=== PATIENT | female | born 1935 | race Caucasian/White ===

== ENCOUNTER 2016-11-25 11:15 | Emergency (ER) | payer MEDICARE ==
[2016-11-25 11:22] VITALS: RESP 18; TEMP 96.9
--- NOTE | 2016-11-25 11:27 | ED ---
General Adult HPI - General Chief complaint: Dizziness Stated complaint: Vertigo Time Seen by Provider: 11/25/16 11:25 Source: patient, EMS, RN notes reviewed, old records reviewed Mode of arrival: EMS Limitations: no limitations - History of Present Illness Initial comments: This is a 80-year-old female here for evaluation of dizziness lightheadedness and nausea. Patient states she woke up this morning eating and feeling well. She's been dealing with this and off for quite some time, has had a stress test cardiology evaluation echo of her heart with no foundries in. Patient states her appetite seems well, she does not feel dehydrated, but this is been having these episodes of weakness and dizziness. She has history of vertigo on Antivert with the room spinning around, states is completely different. No headache chest pain shortness of breath or abdominal pain. No recent significant medication changes - Related Data Home Medications Medication Instructions Recorded Confirmed Levothyroxine Sodium [Synthroid] 125 mcg PO DAILY 07/24/16 11/25/16 Multivitamins, Thera [Multivitamin] 1 tab PO DAILY 07/24/16 11/25/16 Vit A,C & E/Lutein/Minerals 1 tab PO DAILY 07/24/16 11/25/16 [Ocuvite with Lutein Tablet] Biotin 5 mg PO DAILY 11/25/16 11/25/16 Allergies Allergy/AdvReac Type Severity Reaction Status Date / Time aspirin Allergy Rash/Hives Verified 11/25/16 12:53 codeine Allergy Rash/Hives Verified 11/25/16 12:53 lincomycin HCl Allergy Anaphylaxis Verified 11/25/16 12:53 [From Lincocin] midazolam HCl [From Versed] Allergy Rapid Verified 11/25/16 12:53 Heart Rate naproxen [From Naprosyn] Allergy Anaphylaxis Verified 11/25/16 12:53 Penicillins Allergy Rash/Hives Verified 11/25/16 12:53 Sulfa (Sulfonamide Allergy Rash/Hives Verified 11/25/16 12:53 Antibiotics) Review of Systems ROS Statement: Those systems with pertinent positive or pertinent negative responses have been documented in the HPI. ROS Other: All systems not noted in ROS Statement are negative. Past Medical History Past Medical History: Thyroid Disorder Additional Past Medical History / Comment(s): back pain, dizziness History of Any Multi-Drug Resistant Organisms: C-DIFF Date of last positivie culture/infection: 2017 MDRO Source:: stool Past Surgical History: Appendectomy, Tubal Ligation Additional Past Surgical History / Comment(s): bilateral shoulder, cataracts Past Psychological History: Anxiety Smoking Status: Former smoker Past Alcohol Use History: None Reported Past Drug Use History: None Reported General Exam - General Exam Comments Initial Comments: NIH of 0 Limitations: no limitations General appearance: alert, in no apparent distress Head exam: Present: atraumatic, normocephalic, normal inspection Eye exam: Present: normal appearance, PERRL, EOMI. Absent: scleral icterus, conjunctival injection, periorbital swelling ENT exam: Present: normal exam, mucous membranes moist Neck exam: Present: normal inspection. Absent: tenderness, meningismus, lymphadenopathy Respiratory exam: Present: normal lung sounds bilaterally. Absent: respiratory distress, wheezes, rales, rhonchi, stridor Cardiovascular Exam: Present: regular rate, normal rhythm, normal heart sounds. Absent: systolic murmur, diastolic murmur, rubs, gallop, clicks GI/Abdominal exam: Present: soft, normal bowel sounds. Absent: distended, tenderness, guarding, rebound, rigid Extremities exam: Present: normal inspection, full ROM, normal capillary refill. Absent: tenderness, pedal edema, joint swelling, calf tenderness Back exam: Present: normal inspection Neurological exam: Present: alert, oriented X3, CN II-XII intact Psychiatric exam: Present: normal affect, normal mood Skin exam: Present: warm, dry, intact, normal color. Absent: rash Course Vital Signs 11/25/16 11/25/16 11:17 13:00 Temperature 96.9 F L Pulse Rate 56 L 50 L Respiratory 18 18 Rate Blood Pressure 158/72 140/67 O2 Sat by Pulse 97 99 Oximetry - Reevaluation(s) Reevaluation #1: 11/25/16 11:40 Patient is currently asymptomatic, no neurological deficit Reevaluation #2: 11/25/16 12:38 Patient remains asymptomatic EKG Findings - EKG Comments: EKG Findings:: EKG shows sinus bradycardia rate 55, ND 164, QRS 82, QTC 432 Medical Decision Making - Medical Decision Making 80 female here free patient dizziness anxiety. Vision has had recent full cardiac evaluation clinic stress test echo which were negative, lab work x-ray and CT brain are negative for acute disease here, physical exam is normal patient is a some tobacco can be discharged home - Lab Data Result diagrams: 11/25/16 11:29 11/25/16 11:29 Lab Results 11/25/16 11/25/16 11/25/16 Range/Units 11:29 11:29 11:29 WBC 5.5 (3.8-10.6) k/uL RBC 4.80 (3.80-5.40) m/uL Hgb 15.0 (11.4-16.0) gm/dL Hct 44.4 (34.0-46.0) % MCV 92.5 (80.0-100.0) fL MCH 31.3 (25.0-35.0) pg MCHC 33.9 (31.0-37.0) g/dL RDW 12.8 (11.5-15.5) % Plt Count 207 (150-450) k/uL Neutrophils % 51 % Lymphocytes % 38 % Monocytes % 6 % Eosinophils % 2 % Basophils % 1 % Neutrophils # 2.8 (1.3-7.7) k/uL Lymphocytes # 2.1 (1.0-4.8) k/uL Monocytes # 0.3 (0-1.0) k/uL Eosinophils # 0.1 (0-0.7) k/uL Basophils # 0.1 (0-0.2) k/uL Sodium 139 (137-145) mmol/L Potassium 4.5 (3.5-5.1) mmol/L Chloride 102 (98-107) mmol/L Carbon Dioxide 27 (22-30) mmol/L Anion Gap 10 mmol/L BUN 18 H (7-17) mg/dL Creatinine 0.82 (0.52-1.04) mg/dL Est GFR (MDRD) Af Amer >60 (>60 ml/min/1.73 sqM) Est GFR (MDRD) Non-Af >60 (>60 ml/min/1.73 sqM) Glucose 111 H (74-99) mg/dL Calcium 8.9 (8.4-10.2) mg/dL Phosphorus 3.2 (2.5-4.5) mg/dL Magnesium 1.9 (1.6-2.3) mg/dL Total Bilirubin 0.7 (0.2-1.3) mg/dL AST 22 (14-36) U/L ALT 26 (9-52) U/L Alkaline Phosphatase 73 (38-126) U/L Total Creatine Kinase 44 (30-135) U/L CK-MB (CK-2) 0.6 (0.0-2.4) ng/mL CK-MB (CK-2) Rel Index 1.4 Troponin I <0.012 (0.000-0.034) ng/mL Total Protein 6.9 (6.3-8.2) g/dL Albumin 4.0 (3.5-5.0) g/dL Urine Color Urine Appearance (Clear) Urine pH (5.0-8.0) Ur Specific Ray (1.001-1.035) Urine Protein (Negative) Urine Glucose (UA) (Negative) Urine Ketones (Negative) Urine Blood (Negative) Urine Nitrate (Negative) Urine Bilirubin (Negative) Urine Urobilinogen (<2.0) mg/dL Ur Leukocyte Esterase (Negative) 11/25/16 Range/Units 13:00 WBC (3.8-10.6) k/uL RBC (3.80-5.40) m/uL Hgb (11.4-16.0) gm/dL Hct (34.0-46.0) % MCV (80.0-100.0) fL MCH (25.0-35.0) pg MCHC (31.0-37.0) g/dL RDW (11.5-15.5) % Plt Count (150-450) k/uL Neutrophils % % Lymphocytes % % Monocytes % % Eosinophils % % Basophils % % Neutrophils # (1.3-7.7) k/uL Lymphocytes # (1.0-4.8) k/uL Monocytes # (0-1.0) k/uL Eosinophils # (0-0.7) k/uL Basophils # (0-0.2) k/uL Sodium (137-145) mmol/L Potassium (3.5-5.1) mmol/L Chloride (98-107) mmol/L Carbon Dioxide (22-30) mmol/L Anion Gap mmol/L BUN (7-17) mg/dL Creatinine (0.52-1.04) mg/dL Est GFR (MDRD) Af Amer (>60 ml/min/1.73 sqM) Est GFR (MDRD) Non-Af (>60 ml/min/1.73 sqM) Glucose (74-99) mg/dL Calcium (8.4-10.2) mg/dL Phosphorus (2.5-4.5) mg/dL Magnesium (1.6-2.3) mg/dL Total Bilirubin (0.2-1.3) mg/dL AST (14-36) U/L ALT (9-52) U/L Alkaline Phosphatase (38-126) U/L Total Creatine Kinase (30-135) U/L CK-MB (CK-2) (0.0-2.4) ng/mL CK-MB (CK-2) Rel Index Troponin I (0.000-0.034) ng/mL Total Protein (6.3-8.2) g/dL Albumin (3.5-5.0) g/dL Urine Color Light Yellow Urine Appearance Clear (Clear) Urine pH 7.5 (5.0-8.0) Ur Specific Ray 1.002 (1.001-1.035) Urine Protein Negative (Negative) Urine Glucose (UA) Negative (Negative) Urine Ketones Negative (Negative) Urine Blood Negative (Negative) Urine Nitrate Negative (Negative) Urine Bilirubin Negative (Negative) Urine Urobilinogen <2.0 (<2.0) mg/dL Ur Leukocyte Esterase Negative (Negative) - Radiology Data Radiology results: report reviewed (Chest x-ray and CT brain is negative for acute disease), image reviewed Disposition Clinical Impression: Dehydration, Dizziness Disposition: HOME SELF-CARE Condition: Good Instructions: Dizziness (ED) Referrals: Emma Solis MD [Primary Care Provider] - 1-2 days
[2016-11-25] MEDS ORDERED: SODIUM CHLORIDE 0.9% 1,000 ML IV STA (11:39)
[2016-11-25] MEDS ORDERED: SODIUM CHLORIDE 0.9% 500 ML IV STA (11:39)
[2016-11-25] MEDS ORDERED: ONDANSETRON 4 MG/2 ML VIAL IVP STA (11:39)
[2016-11-25] MEDS ORDERED: LORazepam 2 MG/ML SYRINGE IV STA (11:40)
[2016-11-25 12:10] LABS: Basophils # (A) 0.1 k/uL (0-0.2); Basophils % (A) 1 %; CH 31.9; CHCM 34.7; Eosinophils # (A) 0.1 k/uL (0-0.7); Eosinophils % (A) 2 %; HCT 44.4 % (34.0-46.0); HDW 2.35; Luc # (Auto) 0.16; Luc % (Auto) 3; Lymphocytes # (A) 2.1 k/uL (1.0-4.8); Lymphocytes % (A) 38 %; MCH 31.3 pg (25.0-35.0); MCHC 33.9 g/dL (31.0-37.0); MCV 92.5 fL (80.0-100.0); Mean Platelet Volume 7.9; Monocytes # (A) 0.3 k/uL (0-1.0); Monocytes % (A) 6 %; Neutrophils # (A) 2.8 k/uL (1.3-7.7); Neutrophils % (A) 51 %; RDW 12.8 % (11.5-15.5); WBC 5.5 k/uL (3.8-10.6); WBC (Perox) 5.49
[2016-11-25 12:19] LABS: ALT 26 U/L (9-52); AST 22 U/L (14-36); Alkaline Phosphatase 73 U/L (38-126); Anion Gap 10 mmol/L; Blood Urea Nitrogen 18 mg/dL (7-17); Calcium 8.9 mg/dL (8.4-10.2); Carbon Dioxide 27 mmol/L (22-30); Chloride 102 mmol/L (98-107); Glucose 111 mg/dL (74-99); Magnesium 1.9 mg/dL (1.6-2.3); Non-African American GFR(MDRD) >60 (>60 ml/min/1.73 sqM); Phosphorous 3.2 mg/dL (2.5-4.5); Potassium 4.5 mmol/L (3.5-5.1); Sodium 139 mmol/L (137-145); Total Bilirubin 0.7 mg/dL (0.2-1.3); Total Protein 6.9 g/dL (6.3-8.2)
[2016-11-25 12:31] LABS: Creatine Kinase 44 U/L (30-135)
--- NOTE | 2016-11-25 12:40 | CT ---
EXAMINATION TYPE: CT brain wo con DATE OF EXAM: 11/25/2016 12:33 PM COMPARISON: NONE HISTORY: 80-year-old female with weakness and dizziness TECHNIQUE: Examination was done in axial plane without intravenous contrast. Coronal and sagittal r econstructions performed. CT DLP: 1017.9 mGycm Automated exposure control for dose reduction was used. FINDINGS: There is no evidence of acute intracranial hemorrhage, acute ischemic changes, mass, mass-effect, or extra-axial fluid collection. There is no effacement of cerebral sulci or basal subarachnoid cister ns. There is no hydrocephalus. There is no midline shift. Frances-white matter distinction is preserv ed. There is mild cortical atrophy and mild patchy periventricular and deep white matter hypodensities. Paranasal sinuses and mastoid air cells well pneumatized. Orbits and globes are intact. IMPRESSION: No acute intracranial abnormality seen. Mild age-related atrophy and mild changes of chronic small ve ssel ischemic disease.
--- NOTE | 2016-11-25 12:43 | XR ---
EXAMINATION TYPE: XR chest 2V DATE OF EXAM: 11/25/2016 12:36 PM COMPARISON: 07/24/2016 HISTORY: 80-year-old female with weakness TECHNIQUE: Frontal and lateral views FINDINGS: The cardiomediastinal silhouette, aorta, and pulmonary vasculature are within normal limits. Mild int erstitial prominence and mild biapical pleural-parenchymal scarring. Otherwise, lungs and pleural spa lita are clear. IMPRESSION: Chronic changes without acute cardiopulmonary process.
[2016-11-25 12:44] LABS: Creatine Kinase MB 0.6 ng/mL (0.0-2.4); Troponin I <0.012 ng/mL (0.000-0.034)
[2016-11-25 13:10] VITALS: BP 140/67; PULSE 50
[2016-11-25 13:15] LABS: Appearance,Urine Clear (Clear); Bilirubin,Urine Negative (Negative); Glucose,Urine (UA) Negative (Negative); Ketones,Urine Negative (Negative); Leukocyte Esterase,Urine Negative (Negative); Nitrite,Urine Negative (Negative); PH, Urine 7.5 (5.0-8.0); Protein,Urine Negative (Negative); Specific Gravity,Urine 1.002 (1.001-1.035); UA Billing (MACRO vs. MICRO) CHEM; Urobilinogen,Urine <2.0 mg/dL (<2.0)
== END 2016-11-25 13:35 | disposition home or self-care (01) ==
LOC: EC 11:15
DX: E86.0 Dehydration (principal); R42 Dizziness and giddiness; E07.9 Disorder of thyroid, unspecified; F41.9 Anxiety disorder, unspecified; Z79.899 Other long term (current) drug therapy; Z88.0 Allergy status to penicillin; Z88.1 Allergy status to other antibiotic agents; Z88.2 Allergy status to sulfonamides; Z88.5 Allergy status to narcotic agent; Z88.6 Allergy status to analgesic agent; Z87.891 Personal history of nicotine dependence
CPT/HCPCS: 36415; 93005; 80053; 82550; 82553; 83735; 84100; 84484; 85025; 81003; 87086; 71020; 70450; 99285; 96374; 96375; 96361; J2060; J2405

== ENCOUNTER → 2018-03-25 | Outpatient (CLI) | payer MEDICARE ==
--- NOTE | 2018-03-25 11:28 | CT ---
EXAMINATION TYPE: CT abdomen pelvis wo/w con DATE OF EXAM: 03/25/2018 COMPARISON: NONE HISTORY: 82-year-old female lower abdominal pain, unspecified TECHNIQUE: Contiguous axial scanning of the abdomen and pelvis before and after administration of 100 ml Omnipaque 300 IV contrast. Delayed images through the kidneys and coronal/sagittal reconstructio ns performed. CT DLP: 1808 mGycm Automated exposure control for dose reduction was used. FINDINGS: Heart normal size without pericardial effusion. Lung bases clear without pleural effusion. Some peripheral nodular enhancement within segment 5 inferiorly liver lobe measuring 1.1 cm suggests an area of vascular shunting. Portal venous system is patent. No biliary ductal dilatation. Gallbladder, adrenal glands, kidneys with extrarenal pelvis on the right, spleen, and pancreas show n o gross abnormality. No dilated small bowel, free fluid, or free air. A few scattered nonenlarged mesenteric lymph nodes. There is a 7.5 cm long small bowel intussusception located in the anterior left paramedian mid abdome n, refer to coronal image 26 and axial image 49. Borderline distention of small bowel proximal to thi s intussusception. No mesenteric or rectal peritoneal lymphadenopathy. Oral contrast progressed to the splenic flexure. There is moderate scattered stool without pericoloni c inflammatory change. Mild sigmoid diverticulosis. Pelvic phleboliths. Uterus is visualized. Uterus and ovaries are visualized. No abnormal fluid collec tion in the pelvis or pelvic lymphadenopathy. Retroaortic left renal vein noted. Bones: Mild degenerative changes at the hips. Facet arthropathy lower lumbar spine with grade 1 anter olisthesis at L5-S1. Additional trace grade 1 retrolisthesis at L1-L2. No osseous destructive process . IMPRESSION: 1 A 7.5 CM SEGMENT OF SMALL BOWEL INTUSSUSCEPTION IN THE ANTERIOR LEFT PARAMEDIAN MID ABDOMEN. WHILE THIS COULD BE TRANSIENT, AN INTUSSUSCEPTION OF THIS LENGTH MAY BE PATHOLOGIC. CONSIDER SHORT INTERVAL FOLLOW-UP CT, SMALL BOWEL FOLLOW-THROUGH, OR CAPSULE ENDOSCOPY TO FURTHER EVALUATE. 2. MILD SIGMOID DIVERTICULOSIS.
== END | disposition home or self-care (01) ==
LOC: RADCTMAIN 03-19 15:12
PROVIDERS: ATTEND Family Medicine
DX: K57.30 Diverticulosis of large intestine without perforation or abscess without bleeding (principal); K56.1 Intussusception; Z88.0 Allergy status to penicillin; Z88.2 Allergy status to sulfonamides; Z88.6 Allergy status to analgesic agent; Z88.8 Allergy status to other drugs, medicaments and biological substances; Z91.013 Allergy to seafood
CPT/HCPCS: 82565; 84520; 74178; 36415; Q9967

== ENCOUNTER → 2018-04-08 | Outpatient (CLI) | payer MEDICARE ==
--- NOTE | 2018-04-08 18:21 | FL ---
EXAMINATION TYPE: FL small bowel follow through DATE OF EXAM: 04/08/2018 CLINICAL HISTORY: 82-year-old female left lower quadrant abdominal pain with episodes of diarrhea and history of C. Difficile colitis. Small bowel intussusception seen on 03/25/2018 CT. TECHNIQUE: A single contrast small bowel follow through is performed utilizing barium. During fluoroscopy time: 1.16 minutes. Total images: 24. COMPARISON: Correlation CT 03/25/2018 FINDINGS: Logistics Specialist image of the abdomen shows nonobstructive bowel gas pattern. Scattered mild to moderate stool i s present. Phlebolith in the pelvis. Small bowel transit time is borderline fast with contrast reaching the colon at 30 minutes. There is a normal mucosal fold pattern throughout the small bowel. There is no evidence of any stric ture or filling defect noted. The small bowel intussusception seen on CT of 03/25/2018 has not persis susannah. No abnormal mass identified. The terminal ileum is spotted and appears unremarkable. IMPRESSION: 1. Small bowel transit time of 30 minutes is at the lower limits of the normal range. 2. No mucosal abnormality or suspicious filling defect identified to explain the small bowel intussus ception seen on 03/25/2018. A 6-12 month follow-up CT can be considered as a precautionary measure.
== END | disposition home or self-care (01) ==
LOC: RADFLMAIN 08:29
PROVIDERS: ATTEND Family Medicine
DX: R10.30 Lower abdominal pain, unspecified (principal); Z88.1 Allergy status to other antibiotic agents; Z88.0 Allergy status to penicillin; Z88.2 Allergy status to sulfonamides; Z88.5 Allergy status to narcotic agent; Z88.6 Allergy status to analgesic agent; Z88.7 Allergy status to serum and vaccine
CPT/HCPCS: 74250

== ENCOUNTER → 2018-06-24 | Outpatient (CLI) | payer MEDICARE ==
--- NOTE | 2018-06-24 13:24 | XR ---
EXAMINATION TYPE: XR Hip Bilateral Complete DATE OF EXAM: 06/24/2018 CLINICAL HISTORY: Low back pain into both hips, left worse than right. TECHNIQUE: AP and frogleg views of the bilateral hips are obtained. COMPARISON: CT abdomen and pelvis March 25, 2018. FINDINGS: There is no acute fracture/dislocation evident in either hip. Mild axial joint space loss is present in both hips. No significant spurring is present bilaterally. The overlying soft tissue a ppears unremarkable bilaterally. IMPRESSION: As above .
== END | disposition home or self-care (01) ==
LOC: RADXRMAIN 10:53
PROVIDERS: ATTEND Psychiatry & Neurology Neurology
DX: M25.551 Pain in right hip (principal); M25.552 Pain in left hip
CPT/HCPCS: 73521

== ENCOUNTER → 2018-07-09 | Outpatient (CLI) | payer MEDICARE ==
--- NOTE | 2018-07-09 16:20 | MR ---
EXAMINATION TYPE: MR lumbar spine wo con DATE OF EXAM: 07/09/2018 COMPARISON: HISTORY: Lower back, lt leg pain x 2 mos CONTRAST: 0 mL intravenous Gadavist. TECHNIQUE: Multiplanar, multisequence images of the lumbar spine were acquired. Images were obtained on a 3.0 Te sla magnet. FINDINGS: Tarlov cysts appear to be within the sacral canal at the S2-S3 level. Erosion of the sacru m is evident. L5-S1: No significant disc bulge or disc herniation. No spinal canal stenosis. No foraminal stenosi s. Neural foramen are patent.. L4-L5: Mild disc bulge has anterior thecal sac flattening. Facet hypertrophy has posterior lateral th ecal sac compression. There is ligamentum flavum laxity. No stenosis is present L3-L4: Mild disc bulge has anterior thecal sac contact. No AP spinal canal stenosis present. Facet hy pertrophy is present. Ligamentum flavum laxity is present. L2-L3: Minimal disc bulge is present with anterior thecal sac contact. Mild facet hypertrophy is pres ent. No spinal canal stenosis is present. L1-L2: There is a small right paracentral disc herniation with minimal anterior thecal sac contact. A nnular tear could be considered within the differential. No significant thecal sac compression is gosia dent. No spinal canal stenosis is present. Small amount of fluid surrounding the exiting nerve root c ould be considered of expansion of the outer foramen. T12-L1: No significant disc bulge or disc herniation. No spinal canal stenosis. No foraminal stenos is. IMPRESSION: 1. Multilevel mild disc bulges with anterior thecal sac contact. No stenosis is evident. 2. There may be a small annular tear or minimal disc herniation right paracentral L1-2. 3. 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
== END | disposition home or self-care (01) ==
LOC: RADMRIMAIN 14:51
PROVIDERS: ATTEND Psychiatry & Neurology Neurology
DX: M51.26 Other intervertebral disc displacement, lumbar region (principal); G96.19 Other disorders of meninges, not elsewhere classified
CPT/HCPCS: 72148

== ENCOUNTER 2018-07-26 10:50 | Day surgery (SDC) | payer MEDICARE ==
[2018-07-24 15:31] VITALS: BMI 23.0
[~2018-07-26 10:50] MED LIST: LACTATED RINGERS 1,000 ML IV SCH; LIDOCAINE 1% 20 ML VIAL (10MG/ML) FOR IV START INTRADERMA PRN
[2018-07-26 11:35] VITALS: RESP 16; TEMP 98.2
[2018-07-26] MEDS ORDERED: PROPOFOL 10 MG/ML 20 ML VIAL IV ONE (11:41)
--- NOTE | 2018-07-26 12:00 | P.PCN ---
Date of Procedure: 07/26/18 Procedure(s) Performed: BRIEF HISTORY: Patient is a 82-year-old pleasant white female, scheduled for an elective colonoscopy as a part of a value should've lower abdominal pain, intermittent diarrhea for the last 4 years duration. She had an attempted colonoscopy about 10 years ago and was unsuccessful. Because of her ongoing symptoms she is scheduled for colonoscopy today. PROCEDURE PERFORMED: Colonoscopy with random biopsies. PREOPERATIVE DIAGNOSIS: Chronic diarrhea and abdominal pain. IV sedation per Anesthesia. PROCEDURE: After informed consent was obtained, the patient, was brought into the endoscopy unit. IV sedation was administered by Anesthesia under continuous monitoring. Digital rectal examination was normal. Initially the Olympus CF- 160 flexible video colonoscope was then inserted in the rectum, gradually advanced into the cecum without any difficulty. Careful examination was performed as the scope was gradually being withdrawn. Ileocecal valve and the appendiceal orifice were visualized and appeared normal. Prep was excellent. Mucosa of the cecum, ascending colon, transverse colon, descending colon, sigmoid colon, and rectum appeared normal. Random biopsies were done from ascending and descending colon to rule out microscopic/collagenous colitis. Scattered sigmoidal diverticulosis seen. Retroflexion was performed in the rectum and no lesions were seen. The patient tolerated the procedure well. IMPRESSION: Normal-appearing colon from rectum to cecum with no evidence of colitis or colorectal neoplasia Scattered sigmoid diverticulosis. RECOMMENDATIONS: Findings of this examination were discussed with the patient as well as her family. She was advised to follow with the biopsy results. She' ll be seen in office in 3-4 weeks..
[2018-07-26 12:21] VITALS: BP 135/68; PULSE 52
== END 2018-07-26 12:52 | disposition home or self-care (01) ==
LOC: ORWHC2ENDO 10:50
PROVIDERS: ATTEND Internal Medicine Gastroenterology
DX: K52.831 Collagenous colitis (principal); K57.30 Diverticulosis of large intestine without perforation or abscess without bleeding; E07.9 Disorder of thyroid, unspecified; H91.90 Unspecified hearing loss, unspecified ear; R42 Dizziness and giddiness; K21.9 Gastro-esophageal reflux disease without esophagitis; Z79.890 Hormone replacement therapy; Z79.899 Other long term (current) drug therapy; Z88.6 Allergy status to analgesic agent; Z88.5 Allergy status to narcotic agent; Z88.2 Allergy status to sulfonamides; Z88.8 Allergy status to other drugs, medicaments and biological substances; Z88.0 Allergy status to penicillin; Z87.891 Personal history of nicotine dependence
CPT/HCPCS: 88305; 45380; J2704

== ENCOUNTER → 2019-09-04 | Outpatient (CLI) | payer MEDICARE ==
[2019-09-04 13:27] LABS: HCT 41.7 % (34.0-46.0); HGB 13.9 gm/dL (11.4-16.0); MCHC 33.3 g/dL (31.0-37.0); MCV 93.1 fL (80.0-100.0); Mean Platelet Volume 7.2; Platelet Count 260 k/uL (150-450); RBC 4.48 m/uL (3.80-5.40); RDW 12.6 % (11.5-15.5); WBC 9.8 k/uL (3.8-10.6)
[2019-09-04 14:35] LABS: Erythrocyte Sedimentation Rate 12 mm/hr (0-20)
== END | disposition home or self-care (01) ==
LOC: LABWHC1 12:53
PROVIDERS: ATTEND Ophthalmology
DX: G45.3 Amaurosis fugax (principal)
CPT/HCPCS: 36415; 85027; 85652; 86140

== ENCOUNTER 2020-02-04 14:55 | Observation (INO) | payer MEDICARE ==
[2020-02-04 15:41] LABS: Basophils % (A) 1 %; Eosinophils # (A) 0.1 k/uL (0-0.7); Eosinophils % (A) 1 %; HCT 44.6 % (34.0-46.0); HGB 14.3 gm/dL (11.4-16.0); Lymphocytes % (A) 35 %; MCH 30.6 pg (25.0-35.0); MCHC 32.1 g/dL (31.0-37.0); MCV 95.3 fL (80.0-100.0); Mean Platelet Volume 7.7; Monocytes # (A) 0.4 k/uL (0-1.0); Monocytes % (A) 6 %; Neutrophils # (A) 3.2 k/uL (1.3-7.7); Neutrophils % (A) 55 %; Platelet Count 233 k/uL (150-450); RBC 4.67 m/uL (3.80-5.40); RDW 12.7 % (11.5-15.5); WBC 5.9 k/uL (3.8-10.6)
[2020-02-04 15:50] LABS: Albumin 4.3 g/dL (3.5-5.0); Magnesium 2.2 mg/dL (1.6-2.3); Potassium 4.3 mmol/L (3.5-5.1); Total Bilirubin 0.3 mg/dL (0.2-1.3)
--- NOTE | 2020-02-04 16:00 | XR ---
EXAMINATION TYPE: XR chest 2V DATE OF EXAM: 02/04/2020 COMPARISON: Prior chest x-ray 11/25/2016 HISTORY: Chest pain TECHNIQUE: Frontal and lateral views of the chest are obtained. FINDINGS: There is no focal air space opacity, pleural effusion, or pneumothorax seen. The cardiac silhouette size is within normal limits. The osseous structures are intact. There are overlying car diac leads. Biapical pleural thickening is stable. Question prior distal clavicular resection. There is a spinal curvature. There is eventration of the hemidiaphragms. IMPRESSION: No acute cardiopulmonary process.
[2020-02-04 16:10] LABS: D-Dimer 0.24 mg/L FEU (<0.60); Partial Thromboplastin Time 25.8 sec (22.0-30.0); Prothrombin Time 10.1 sec (9.0-12.0)
[2020-02-04] MEDS ORDERED: NITROGLYCERIN SL TABS 0.4 MG TAB SUBLINGUAL STA (16:52)
--- NOTE | 2020-02-04 16:52 | ED ---
Chest Pain HPI - General Chief Complaint: Chest Pain Stated Complaint: Chest Pain Time Seen by Provider: 02/04/20 15:00 Source: patient Mode of arrival: ambulatory Limitations: no limitations - History of Present Illness Initial Comments: The patient is an 84-year-old female past medical history of GERD, thyroid disorder who presents to emergency room with reported chest pain. The patient states that she was sitting down this morning at home around 11 AM when she had sudden onset of pain in her chest which radiated between her shoulder blades. States the pain was 10/10 at onset. She chewed a couple of Tums because she thought it was reflux. States that she had no improvement in her symptoms. The patient has no previous cardiac history. Does see Dr. Villanueva in office once yearly because of her murmur. States that she had a stress test approximately 3-4 years ago which was negative. She has never had a cardiac catheterization. The patient did not take any aspirin as she is ALLERGIC. She denies any associated diaphoresis or nausea. No vomiting. Denies cough or hemoptysis. No lower extremity edema. No history of DVT or PE. Denies that it is ripping or tearing sensation. Denies any numbness or weakness. No abdominal pain. She attempted to go to an urgent care however there are EKG she was broken and therefore she came to the emergency room for further evaluation. Patient reports that over the past several weeks she has been becoming more winded recently. States physical flight of stairs and feel dizzy. She went to stop at the top and rest. There are no alleviating, precipitating or modifying factors - Related Data Home Medications Medication Instructions Recorded Confirmed Vits A,C,E/Lutein/Minerals 1 tab PO DAILY 07/24/16 02/04/20 [Ocuvite with Lutein Tablet] Biotin 5 mg PO DAILY 11/25/16 02/04/20 Levothyroxine Sodium [Synthroid] 100 mcg PO DAILY 02/04/20 02/04/20 Loratadine [Claritin] 10 mg PO DAILY 02/04/20 02/04/20 Omeprazole 20 mg PO DAILY 02/04/20 02/04/20 Previous Rx's Medication Instructions Recorded Acetaminophen Tab [Tylenol] 650 mg PO Q4H PRN #30 tab 02/05/20 Meloxicam [Mobic] 7.5 mg PO DAILY PRN #30 tab 02/05/20 Allergies Allergy/AdvReac Type Severity Reaction Status Date / Time aspirin Allergy Rash/Hives Verified 02/04/20 18:11 codeine Allergy Rash/Hives Verified 02/04/20 18:11 lincomycin HCl Allergy Anaphylaxis Verified 02/04/20 18:11 [From Lincocin] midazolam HCl [From Versed] Allergy Rapid Verified 02/04/20 18:11 Heart Rate naproxen [From Naprosyn] Allergy Anaphylaxis Verified 02/04/20 18:11 Penicillins Allergy Rash/Hives Verified 02/04/20 18:11 Sulfa (Sulfonamide Allergy Rash/Hives Verified 02/04/20 18:11 Antibiotics) Review of Systems ROS Statement: Those systems with pertinent positive or pertinent negative responses have been documented in the HPI. ROS Other: All systems not noted in ROS Statement are negative. EKG Findings - EKG Comments: EKG Findings:: EKG demonstrates a sinus bradycardia with a ventricular rate of 50. CO interval 164. QRS 82. QTC of 413. No acute ST segment elevations or depressions concerning for ischemic changes Past Medical History Past Medical History: Cancer, Eye Disorder, GERD/Reflux, Hearing Disorder / Deafness, Thyroid Disorder Additional Past Medical History / Comment(s): VERTIGO. HX ARRYTHMIA, NO TX NEEDED. ALLERGIES. CA FACE. DRY EYES. EXCESSIVE DIARRHEA ON/OFF FOR FEW MONTHS, HX C-DIFF. History of Any Multi-Drug Resistant Organisms: C-DIFF Date of last positivie culture/infection: 2016 MDRO Source:: stool Past Surgical History: Appendectomy, Hernia Repair, Tubal Ligation Additional Past Surgical History / Comment(s): CHELA Shoulder. Cataracts. INGUINAL HERNIA REPAIR. COLONOSCOPY. Past Anesthesia/Blood Transfusion Reactions: No Reported Reaction Past Psychological History: Anxiety Smoking Status: Former smoker Past Alcohol Use History: None Reported Past Drug Use History: None Reported - Past Family History Mother Family Medical History: CVA/TIA Father Family Medical History: Myocardial Infarction ([place]) General Exam Limitations: no limitations General appearance: alert, in no apparent distress Head exam: Present: atraumatic, normocephalic, normal inspection Eye exam: Present: normal appearance, PERRL, EOMI. Absent: scleral icterus, conjunctival injection, periorbital swelling ENT exam: Present: normal exam, mucous membranes moist Neck exam: Present: normal inspection. Absent: tenderness, meningismus, lymphadenopathy Respiratory exam: Present: normal lung sounds bilaterally. Absent: respiratory distress, wheezes, rales, rhonchi, stridor Cardiovascular Exam: Present: regular rate, normal rhythm, normal heart sounds. Absent: systolic murmur, diastolic murmur, rubs, gallop, clicks GI/Abdominal exam: Present: soft, normal bowel sounds. Absent: distended, t enderness, guarding, rebound, rigid Extremities exam: Present: normal inspection, full ROM, normal capillary refill. Absent: tenderness, pedal edema, joint swelling, calf tenderness Back exam: Present: normal inspection Neurological exam: Present: alert, oriented X3, CN II-XII intact Psychiatric exam: Present: normal affect, normal mood Skin exam: Present: warm, dry, intact, normal color. Absent: rash Course Vital Signs 02/04/20 02/04/20 02/04/20 14:58 15:09 16:02 Temperature 98 F Pulse Rate 52 L 55 L Pulse Rate [ 50 L Contract Administrative Assistant ] Respiratory 18 Rate Blood Pressure 151/82 O2 Sat by Pulse 100 Oximetry 02/04/20 02/04/20 02/04/20 17:00 17:08 18:10 Temperature Pulse Rate 52 L 51 L 56 L Pulse Rate [ Contract Administrative Assistant ] Respiratory 16 16 16 Rate Blood Pressure 153/72 121/72 118/55 O2 Sat by Pulse 98 98 97 Oximetry Chest Pain MDM - MDM Upon arrival the patient is placed into room 1. A thorough history and physical exam was performed. Patient is hooked up to continuous pulse ox and cardiac monitoring. A 12-lead EKG was performed which demonstrates a sinus bradycardia with ventricular rate of 50. Peripheral IV was established. I did request to give the patient aspirin however she states that she has an ALLERGY to and cannot take it. I did provided patient with a dose of sublingual nitro and did not adjust her pain at all. Laboratory studies were unremarkable. D-dimer 0.24 BNP 232. Troponin less than 0.012. Patient sent over for chest x-ray which demonstrates no acute cardio pulmonary process. I am unable to perform a CT the patient's chest as she has a contrast ALLERGY. I discussed the results with the patient. I did recommend hospital admission in order to trend the patient's troponins and be evaluated by cardiology. The patient understood and is currently awaiting a bed on the floor Disposition Clinical Impression: Chest pain Disposition: ADMITTED IP TO THIS HOSP Condition: Stable Is patient prescribed a controlled substance at d/c from ED?: No Decision to Admit Reason: Admit from EC Decision Date: 02/04/20 Decision Time: 16:52
[2020-02-04] MEDS ORDERED: NALOXONE 0.4 MG/ML 1 ML VIAL IV PRN (16:53)
[2020-02-04] MEDS: ACETAMINOPHEN TAB 325 MG TAB PO PRN ×2 (17:05→22:33)
[2020-02-05] MEDS ORDERED: CALCIUM CARBONATE 500 MG CHEWABLE PO PRN (00:40)
[2020-02-05 06:12] LABS: Basophils % (A) 1 %; Eosinophils # (A) 0.1 k/uL (0-0.7); Eosinophils % (A) 3 %; HCT 42.4 % (34.0-46.0); HGB 14.2 gm/dL (11.4-16.0); Lymphocytes # (A) 2.1 k/uL (1.0-4.8); Lymphocytes % (A) 44 %; MCH 31.8 pg (25.0-35.0); MCHC 33.6 g/dL (31.0-37.0); MCV 94.8 fL (80.0-100.0); Mean Platelet Volume 7.8; Monocytes # (A) 0.3 k/uL (0-1.0); Monocytes % (A) 7 %; Neutrophils # (A) 2.1 k/uL (1.3-7.7); Neutrophils % (A) 43 %; Platelet Count 256 k/uL (150-450); RBC 4.47 m/uL (3.80-5.40); RDW 12.5 % (11.5-15.5); WBC 4.8 k/uL (3.8-10.6)
[2020-02-05 06:27] LABS: Calcium 9.1 mg/dL (8.4-10.2); Potassium 4.8 mmol/L (3.5-5.1)
[2020-02-05] MEDS ORDERED: LEVOTHYROXINE 100 MCG TAB PO SCH (06:30)
[2020-02-05 08:56] LABS: Cholesterol 231 mg/dL (<200); HDL Cholesterol 60 mg/dL (40-60); LDL Cholesterol,Calculated 155 mg/dL (0-99); Triglycerides 78 mg/dL (<150)
--- NOTE | 2020-02-05 11:52 | P.CRDCN ---
History of Present Illness Consult date: 02/05/20 Requesting physician: Wally Wynn Consult reason: chest pain Chief complaint: Scapula pain between shoulder blades, chest discomfort History of present illness: This is a pleasant 84-year-old female with history of hypothyroidism, GERD, who presented to the hospital with symptoms of pain between her shoulder blades that ultimately radiated around into her chest area. She states that she really felt it was a gas type of pain, she initially took Tums with no improvement but subsequently the pain seemed to improve after taking her Tums. This morning when the patient takes a deep breath she can still feel some pain in the left posterior shoulder blade area, otherwise she is currently symptom free. Chest x-ray did not reveal any acute process. EKG showed sinus bradycardia with nonspecific ST-T wave changes in the anterior leads. Blood pressure 142/70, heart rate 50, respirations 20. 97% on room air. White blood cell count 4.8, hemoglobin 14.2, platelet count 256. Sodium 138, potassium 4.8, BUN 14, creatinine 0.8. Troponins were negative 3 in the cruz virus was not detected. Patient added a little to her presenting symptoms, stating that she does get intermittent lightheadedness which she's been noticing for some time now. She states that when she goes from a sitting to standing position she becomes quite lightheaded or if she goes up the stairs in her home she becomes lightheaded. According to the patient, she also follows with Dr. Villanueva in the office on a yearly basis although has not had any significant cardiac history in the past. Past Medical History Past Medical History: Cancer, Eye Disorder, GERD/Reflux, Hearing Disorder / Deafness, Thyroid Disorder Additional Past Medical History / Comment(s): VERTIGO. HX ARRYTHMIA, NO TX NEEDED. ALLERGIES. CA FAC-spindlecell . DRY EYES. EXCESSIVE DIARRHEA ON/OFF FOR FEW MONTHS, HX C-DIFF. [place] with aides History of Any Multi-Drug Resistant Organisms: C-DIFF Date of last positivie culture/infection: 2016 MDRO Source:: stool Past Surgical History: Appendectomy, Hernia Repair, Tubal Ligation Additional Past Surgical History / Comment(s): CHELA Shoulder. Cataracts. INGUINAL HERNIA REPAIR. COLONOSCOPY. Past Anesthesia/Blood Transfusion Reactions: No Reported Reaction Smoking Status: Former smoker - Past Family History Mother Family Medical History: CVA/TIA Father Family Medical History: Hyperlipidemia, Hypertension, Myocardial Infarction ([place]) Medications and Allergies Home Medications Medication Instructions Recorded Confirmed Type Vits A,C,E/Lutein/Minerals 1 tab PO DAILY 07/24/16 02/04/20 History [Ocuvite with Lutein Tablet] Biotin 5 mg PO DAILY 11/25/16 02/04/20 History Levothyroxine Sodium [Synthroid] 100 mcg PO DAILY 02/04/20 02/04/20 History Loratadine [Claritin] 10 mg PO DAILY 02/04/20 02/04/20 History Omeprazole 20 mg PO DAILY 02/04/20 02/04/20 History Allergies Allergy/AdvReac Type Severity Reaction Status Date / Time aspirin Allergy Rash/Hives Verified 02/04/20 18:11 codeine Allergy Rash/Hives Verified 02/04/20 18:11 lincomycin HCl Allergy Anaphylaxis Verified 02/04/20 18:11 [From Lincocin] midazolam HCl [From Versed] Allergy Rapid Verified 02/04/20 18:11 Heart Rate naproxen [From Naprosyn] Allergy Anaphylaxis Verified 02/04/20 18:11 Penicillins Allergy Rash/Hives Verified 02/04/20 18:11 Sulfa (Sulfonamide Allergy Rash/Hives Verified 02/04/20 18:11 Antibiotics) Physical Exam Vitals: Vital Signs Temp Pulse Pulse Resp BP BP Pulse Ox 02/05/20 08:00 98 F 57 L 16 133/66 96 02/05/20 04:00 98.3 F 51 L 16 143/72 97 02/04/20 22:43 55 L 16 134/63 96 02/04/20 19:43 18 02/04/20 19:42 96.5 F L 51 L 18 121/58 96 02/04/20 18:38 97.2 F L 62 18 127/63 99 02/04/20 18:10 56 L 16 118/55 97 02/04/20 17:08 51 L 16 121/72 98 02/04/20 17:00 52 L 16 153/72 98 02/04/20 16:02 55 L 02/04/20 15:09 50 L 02/04/20 14:58 98 F 52 L 18 151/82 100 Intake and Output 02/04/20 02/05/20 02/05/20 22:59 06:59 14:59 Intake Total 200 240 Balance 200 240 Intake: Oral 200 240 Other: Voiding Method Toilet # Voids 1 Weight 65.771 kg 67.3 kg PHYSICAL EXAMINATION: GENERAL: 84-year-old female in no acute distress at the time of my examination HEENT: Head is atraumatic, normocephalic. Pupils equal, round. Sclera anicteric. Conjunctiva are clear. Mucous membranes of the mouth are moist. Neck is supple. There is no elevated jugular venous pressure.No Carotid bruit is heard. HEART EXAMINATION: S1 S2 1 systolic murmur is heard CHEST EXAMINATION: Lungs are clear to auscultation and precussion. No chest wall tenderness is noted on palpation or with deep breathing. ABDOMEN: Soft, nontender. Bowel sounds are heard. No organomegaly noted. EXTREMITIES: 2+ peripheral pulses with no evidence of peripheral edema and no calf tenderness noted. NEUROLOGIC patient is awake, alert and oriented 3 . . Results 02/05/20 06:01 02/05/20 06:01 Cardiac Enzymes 02/04/20 02/04/20 02/04/20 Range/Units 15:18 15:18 20:58 AST 23 (14-36) U/L Troponin I <0.012 <0.012 (0.000-0.034) ng/mL 02/05/20 Range/Units 02:43 AST (14-36) U/L Troponin I <0.012 (0.000-0.034) ng/mL Coagulation 02/04/20 Range/Units 15:18 PT 10.1 (9.0-12.0) sec APTT 25.8 (22.0-30.0) sec Lipids 02/05/20 Range/Units 06:01 Triglycerides 78 (<150) mg/dL Cholesterol 231 H (<200) mg/dL HDL Cholesterol 60 (40-60) mg/dL CBC 02/04/20 02/05/20 Range/Units 15:18 06:01 WBC 5.9 4.8 (3.8-10.6) k/uL RBC 4.67 4.47 (3.80-5.40) m/uL Hgb 14.3 14.2 (11.4-16.0) gm/dL Hct 44.6 42.4 (34.0-46.0) % Plt Count 233 256 (150-450) k/uL Comprehensive Metabolic Panel 02/04/20 02/05/20 Range/Units 15:18 06:01 Sodium 137 138 (137-145) mmol/L Potassium 4.3 4.8 (3.5-5.1) mmol/L Chloride 102 103 (98-107) mmol/L Carbon Dioxide 29 29 (22-30) mmol/L BUN 19 H 14 (7-17) mg/dL Creatinine 0.88 0.80 (0.52-1.04) mg/dL Glucose 101 H 97 (74-99) mg/dL Calcium 9.0 9.1 (8.4-10.2) mg/dL AST 23 (14-36) U/L ALT 13 (4-34) U/L Alkaline Phosphatase 72 (38-126) U/L Total Protein 7.0 (6.3-8.2) g/dL Albumin 4.3 (3.5-5.0) g/dL Current Medications Generic Name Dose Route Start Last Admin Trade Name Freq PRN Reason Stop Dose Admin Acetaminophen 650 mg 02/04/20 16:53 02/04/20 22:33 Tylenol Tab PO 650 mg Q6HR PRN Administration Mild Pain or Fever > 100.5 Calcium Carbonate/Glycine 500 mg 02/05/20 00:40 Tums PO Q6H PRN Heartburn Levothyroxine Sodium 100 mcg 02/05/20 06:30 02/05/20 06:15 Synthroid PO 100 mcg DAILY@0630 CLEM Administration Naloxone HCl 0.2 mg 02/04/20 16:53 Narcan IV Q2M PRN Opioid Reversal Intake and Output 02/04/20 02/05/20 02/05/20 22:59 06:59 14:59 Intake Total 200 240 Balance 200 240 Intake: Oral 200 240 Other: Voiding Method Toilet # Voids 1 Weight 65.771 kg 67.3 kg 02/05/20 06:01 02/05/20 06:01 EKG Interpretations (text) EKG shows a sinus bradycardia with nonspecific changes noted in the anterior leads Assessment and Plan Plan: Assessment and plan #1 symptoms of pain between the shoulder blade area with radiation to the chest, atypical for acute coronary syndrome. Pain in the shoulder blades worsens with deep breathing. Reproducible. Troponins are negative 3. EKG shows a sinus bradycardia with nonspecific changes in the anterior leads. #2 cardiac risk factors negative for hypertension, no diabetes, no hyperlipidemia, she is a nonsmoker #3 symptoms of lightheadedness, appeared to be positional, a curb when she goes from sitting to standing position or walks up stairs. Rule out possible orthostatic hypotension. Patient may also have some mild lightheadedness from bradycardia, her heart rate around 50, we will check TSH level. She is not on any rate lowering medications. #4 hypothyroidism #5 GERD Plan We will obtain an echocardiogram with Doppler study, check a TSH level, we will also check orthostatic heart rate and blood pressure every shift. Further recommendations to follow. DNP note has been reviewed, I agree with a documented findings and plan of care. Patient was seen and examined.
--- NOTE | 2020-02-05 12:47 | P.HPIM ---
History of Present Illness 83-year-old pleasant female came in with compensative chest pain is started as a back pain in the muscle strain the back with sharp in nature and increases with deep breathing patient has a negative d-dimer. Patient chest pain is re producible and this set back pain radiated to front of the chest. Patient denied any shortness of breath is have some lightheadedness which appears to be chronic has been going on for about a month. Patient denied any fever chills cough. Patient doesn't smoke patient Sams pain is [id number] in severity radiating from back to front of the chest Review of Systems REVIEW OF SYSTEMS: CONSTITUTIONAL: No fever, no malaise, no fatigue. HEENT: No recent visual problems or hearing problems. Denied any sore throat. CARDIOVASCULAR: No orthopnea, PND, no palpitations, no syncope. PULMONARY: No shortness of breath, no cough, no hemoptysis. GASTROINTESTINAL: No diarrhea, no nausea, no vomiting, no abdominal pain. NEUROLOGICAL: No headaches, no weakness, no numbness. HEMATOLOGICAL: Denies any bleeding or petechiae. GENITOURINARY: Denies any burning micturition, frequency, or urgency. MUSCULOSKELETAL/RHEUMATOLOGICAL: Denies any joint pain, swelling. ENDOCRINE: Denies any polyuria or polydipsia. The rest of the 14-point review of systems is negative. Past Medical History Past Medical History: Cancer, Eye Disorder, GERD/Reflux, Hearing Disorder / Deafness, Thyroid Disorder Additional Past Medical History / Comment(s): VERTIGO. HX ARRYTHMIA, NO TX NEEDED. ALLERGIES. CA FAC-spindlecell . DRY EYES. EXCESSIVE DIARRHEA ON/OFF FOR FEW MONTHS, HX C-DIFF. [place] with aides History of Any Multi-Drug Resistant Organisms: C-DIFF Date of last positivie culture/infection: 2016 MDRO Source:: stool Past Surgical History: Appendectomy, Hernia Repair, Tubal Ligation Additional Past Surgical History / Comment(s): CHELA Shoulder. Cataracts. INGUINAL HERNIA REPAIR. COLONOSCOPY. Past Anesthesia/Blood Transfusion Reactions: No Reported Reaction Smoking Status: Former smoker - Past Family History Mother Family Medical History: CVA/TIA Father Family Medical History: Hyperlipidemia, Hypertension, Myocardial Infarction ([place]) Medications and Allergies Home Medications Medication Instructions Recorded Confirmed Type Vits A,C,E/Lutein/Minerals 1 tab PO DAILY 07/24/16 02/04/20 History [Ocuvite with Lutein Tablet] Biotin 5 mg PO DAILY 11/25/16 02/04/20 History Levothyroxine Sodium [Synthroid] 100 mcg PO DAILY 02/04/20 02/04/20 History Loratadine [Claritin] 10 mg PO DAILY 02/04/20 02/04/20 History Omeprazole 20 mg PO DAILY 02/04/20 02/04/20 History Acetaminophen Tab [Tylenol] 650 mg PO Q4H PRN #30 tab 02/05/20 Rx Meloxicam [Mobic] 7.5 mg PO DAILY #30 tab 02/05/20 Rx Allergies Allergy/AdvReac Type Severity Reaction Status Date / Time aspirin Allergy Rash/Hives Verified 02/04/20 18:11 codeine Allergy Rash/Hives Verified 02/04/20 18:11 lincomycin HCl Allergy Anaphylaxis Verified 02/04/20 18:11 [From Lincocin] midazolam HCl [From Versed] Allergy Rapid Verified 02/04/20 18:11 Heart Rate naproxen [From Naprosyn] Allergy Anaphylaxis Verified 02/04/20 18:11 Penicillins Allergy Rash/Hives Verified 02/04/20 18:11 Sulfa (Sulfonamide Allergy Rash/Hives Verified 02/04/20 18:11 Antibiotics) Physical Exam Vitals: Vital Signs Temp Pulse Pulse Resp BP BP Pulse Ox 02/05/20 08:00 98 F 57 L 16 133/66 96 02/05/20 04:00 98.3 F 51 L 16 143/72 97 02/04/20 22:43 55 L 16 134/63 96 02/04/20 19:43 18 02/04/20 19:42 96.5 F L 51 L 18 121/58 96 02/04/20 18:38 97.2 F L 62 18 127/63 99 02/04/20 18:10 56 L 16 118/55 97 02/04/20 17:08 51 L 16 121/72 98 02/04/20 17:00 52 L 16 153/72 98 02/04/20 16:02 55 L 02/04/20 15:09 50 L 02/04/20 14:58 98 F 52 L 18 151/82 100 Intake and Output 02/04/20 02/05/20 02/05/20 22:59 06:59 14:59 Intake Total 200 240 Balance 200 240 Intake: Oral 200 240 Other: Voiding Method Toilet # Voids 1 Weight 65.771 kg 67.3 kg PHYSICAL EXAMINATION: GENERAL: The patient is alert and oriented x3, not in any acute distress. Well developed, well nourished. HEENT: Pupils are round and equally reacting to light. EOMI. No scleral icterus. No conjunctival pallor. Normocephalic, atraumatic. No pharyngeal erythema. No thyromegaly. CARDIOVASCULAR: S1 and S2 present. No murmurs, rubs, or gallops. PULMONARY: Chest is clear to auscultation, no wheezing or crackles. ABDOMEN: Soft, nontender, nondistended, normoactive bowel sounds. No palpable organomegaly. MUSCULOSKELETAL: No joint swelling or deformity. EXTREMITIES: No cyanosis, clubbing, or pedal edema. NEUROLOGICAL: Gross neurological examination did not reveal any focal deficits. SKIN: No rashes. Results CBC & Chem 7: 02/05/20 06:01 02/05/20 06:01 Labs: Abnormal Lab Results - Last 24 Hours (Table) 02/04/20 02/05/20 Range/Units 15:18 06:01 BUN 19 H (7-17) mg/dL Glucose 101 H (74-99) mg/dL Cholesterol 231 H (<200) mg/dL LDL Cholesterol, Calc 155 H (0-99) mg/dL Thrombosis Risk Factor Assmnt - Choose All That Apply Any of the Below Risk Factors Present?: No Other Risk Factors: Yes Each Risk Factor Represents 3 Points: Age 75 years or older Other congenital or acquired thrombophilia - If yes, enter type in comment: No Thrombosis Risk Factor Assessment Total Risk Factor Score: 3 Thrombosis Risk Factor Assessment Level: Moderate Risk Assessment and Plan Plan: -Chest pain appears to be mostly musculoskeletal and coming from the thoracic vertebral area. Patient will be advised to take Tylenol and will be given pres cription for meloxicam if needed. We ruled out acute coronary syndromes, cardiology evaluated the patient patient probably can get a stress test as an outpatient. If cleared by cardiology patient will be discharged today. 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
--- NOTE | 2020-02-05 12:48 | P.DS ---
Providers Date of admission: 02/04/20 16:53 Attending physician: Wally Wynn Consults: 02/04/20 16:53 Consult Physician Urgent Consulting Provider: [facility] Consult Reason/Comments: acute chest pain Do you want consulting provider notified?: Yes Primary care physician: Emma Solis [place] Hospital Course: As mentioned in HPI Patient Condition at Discharge: Stable Plan - Discharge Summary Discharge Rx Participant: Yes New Discharge Prescriptions: New Acetaminophen Tab [Tylenol] 650 mg PO Q4H PRN #30 tab PRN Reason: Pain Meloxicam [Mobic] 7.5 mg PO DAILY PRN #30 tab PRN Reason: Pain No Action Vits A,C,E/Lutein/Minerals [Ocuvite with Lutein Tablet] 1 tab PO DAILY Biotin 5 mg PO DAILY Levothyroxine Sodium [Synthroid] 100 mcg PO DAILY Loratadine [Claritin] 10 mg PO DAILY Omeprazole 20 mg PO DAILY Discharge Medication List Vits A,C,E/Lutein/Minerals [Ocuvite with Lutein Tablet] 1 tab PO DAILY 07/24/16 [History] Biotin 5 mg PO DAILY 11/25/16 [History] Levothyroxine Sodium [Synthroid] 100 mcg PO DAILY 02/04/20 [History] Loratadine [Claritin] 10 mg PO DAILY 02/04/20 [History] Omeprazole 20 mg PO DAILY 02/04/20 [History] Acetaminophen Tab [Tylenol] 650 mg PO Q4H PRN #30 tab 02/05/20 [Rx] Meloxicam [Mobic] 7.5 mg PO DAILY PRN #30 tab 02/05/20 [Rx] Follow up Appointment(s)/Referral(s): Emma Solis MD [Primary Care Provider] - 3 Days Discharge Disposition: HOME SELF-CARE
[2020-02-05] MEDS: ACETAMINOPHEN TAB 325 MG TAB PO PRN (12:56)
[2020-02-05 13:56] VITALS: BP 131/73; PULSE 59; RESP 18; TEMP 97
--- NOTE | 2020-02-06 08:47 | ECHOF ---
Referral Reason:exertional shortness of breath, cp MEASUREMENTS -------- HEIGHT: 170.2 cm WEIGHT: 67.1 kg BP: 143/72 RVIDd: 2.8 cm (< 3.3) IVSd: 1.2 cm (0.6 - 1.1) LVIDd: 3.8 cm (3.9 - 5.3) LVPWd: 1.1 cm (0.6 - 1.1) IVSs: 1.7 cm LVIDs: 2.6 cm LVPWs: 1.7 cm LA Diam: 3.4 cm (2.7 - 3.8) LAESV Index (A-L): 18.62 ml/m Ao Diam: 3.0 cm (2.0 - 3.7) AV Cusp: 1.8 cm (1.5 - 2.6) MV EXCURSION: 15.618 mm (> 18.000) MV EF SLOPE: 28 mm/s (70 - 150) EPSS: 0.7 cm MV E Marc: 0.65 m/s MV DecT: 345 ms MV A Marc: 0.85 m/s MV E/A Ratio: 0.76 RAP: 5.00 mmHg RVSP: 24.94 mmHg FINDINGS -------- Resting bradycardia (HR<60bpm). This was a technically good study. The left ventricular size is normal. There is borderline concentric left ventricular hypertrophy. Overall left ventricular systolic function is normal with, an EF between 55 - 60 %. The right ventricle is normal in size. Normal LA size by volume 22+/-6 ml/m2. The right atrium is normal in size. Interatrial and interventricular septum intact. The aortic valve is trileaflet and appears structurally normal. Trace amount of aortic regurgitatio n. Mild mitral regurgitation is present. Mild tricuspid regurgitation present. Right ventricular systolic pressure is normal at < 35 mmHg. Trace/mild (physiologic) pulmonic regurgitation. The aortic root size is normal. Normal inferior vena cava with normal inspiratory collapse consistent with estimated right atrial pre ssure of 5 mmHg. There is no pericardial effusion. CONCLUSIONS -------- 1. Resting bradycardia (HR<60bpm). 2. This was a technically good study. 3. The left ventricular size is normal. 4. There is borderline concentric left ventricular hypertrophy. 5. Overall left ventricular systolic function is normal with, an EF between 55 - 60 %. 6. The right ventricle is normal in size. 7. Normal LA size by volume 22+/-6 ml/m2. 8. The right atrium is normal in size. 9. Interatrial and interventricular septum intact. 10. The aortic valve is trileaflet and appears structurally normal. 11. Trace amount of aortic regurgitation. 12. Mild mitral regurgitation is present. 13. Mild tricuspid regurgitation present. 14. Right ventricular systolic pressure is normal at < 35 mmHg. 15. Trace/mild (physiologic) pulmonic regurgitation. 16. The aortic root size is normal. 17. Normal inferior vena cava with normal inspiratory collapse consistent with estimated right atrial pressure of 5 mmHg. 18. There is no pericardial effusion. HR CLERK: Briana Sands RDCS
== END 2020-02-05 15:42 | disposition home or self-care (01) ==
LOC: EC 14:55 → 3SCARD 16:53
PROVIDERS: ADMIT Hospitalist; ATTEND Hospitalist
DX: R07.89 Other chest pain (principal); M54.6 Pain in thoracic spine; K21.9 Gastro-esophageal reflux disease without esophagitis; E03.9 Hypothyroidism, unspecified; F41.9 Anxiety disorder, unspecified; R00.1 Bradycardia, unspecified; R42 Dizziness and giddiness; H91.90 Unspecified hearing loss, unspecified ear; R01.1 Cardiac murmur, unspecified; H04.129 Dry eye syndrome of unspecified lacrimal gland; Z16.24 Resistance to multiple antibiotics; Z79.1 Long term (current) use of non-steroidal anti-inflammatories (NSAID); Z79.890 Hormone replacement therapy; Z88.6 Allergy status to analgesic agent; Z91.041 Radiographic dye allergy status; Z88.5 Allergy status to narcotic agent; Z88.0 Allergy status to penicillin; Z88.2 Allergy status to sulfonamides; Z88.8 Allergy status to other drugs, medicaments and biological substances; Z87.891 Personal history of nicotine dependence; Z98.51 Tubal ligation status; Z90.49 Acquired absence of other specified parts of digestive tract; Z98.49 Cataract extraction status, unspecified eye; Z85.828 Personal history of other malignant neoplasm of skin; Z82.49 Family history of ischemic heart disease and other diseases of the circulatory system; Z82.3 Family history of stroke; Z83.49 Family history of other endocrine, nutritional and metabolic diseases; Z79.899 Other long term (current) drug therapy; Z03.818 Encounter for observation for suspected exposure to other biological agents ruled out
CPT/HCPCS: 99285; 36415; 93005; 93306; 85379; 83880; 80053; 80048; 80061; 83690; 83735; 84443; 84484 ×2; 85025 ×2; 85610; 85730; 87635; 71046; G0378 ×2

== ENCOUNTER 2020-07-28 10:04 | Emergency (ER) | payer MEDICARE ==
[2020-07-28] MEDS ORDERED: traMADol 50 MG STARTER PACK 3 TAB BTL PO STA (10:24)
[2020-07-28] MEDS ORDERED: MORPHINE SULFATE 4 MG/ML SYRINGE IM STA (10:24)
[2020-07-28] MEDS ORDERED: ORPHENADRINE 30 MG/ML 2 ML VIAL IM STA (10:24)
[2020-07-28] MEDS ORDERED: methylPREDNISolone SOD SUCCI 125 MG/2 ML VIAL IM ONE (10:24)
--- NOTE | 2020-07-28 10:28 | ED ---
Back Pain HPI - General Chief Complaint: Back Pain/Injury Stated Complaint: Back Pain Time Seen by Provider: 07/28/20 10:13 Source: patient, RN notes reviewed, old records reviewed Limitations: no limitations - History of Present Illness Initial Comments: Patient is an 84-year-old female who presents emergency department today with chief complaint of chronic back pain. Patient reports that she has been having shooting pain down the lower back and down her right leg. She reports that she saw an communicable disease specialist Dr. Encarnacion who gave her steroids. She reports prior to her finishing the steroids the pain recurred. Patient states that she is scheduled to have an MRI at their office tomorrow. The possible procedures. Pain afterwards. She reports she's R he had x-rays. She denies saddle anesthesias. She denies any fall or trauma to her leg or back. - Related Data Home Medications Medication Instructions Recorded Confirmed Vits A,C,E/Lutein/Minerals 1 tab PO DAILY 07/24/16 07/28/20 [Ocuvite with Lutein Tablet] Biotin 5 mg PO DAILY 11/25/16 07/28/20 Levothyroxine Sodium [Synthroid] 112 mcg PO DAILY 07/28/20 07/28/20 Omeprazole 40 mg PO DAILY 07/28/20 07/28/20 Ubidecarenone [Co Q-10] 100 mg PO DAILY 07/28/20 07/28/20 Previous Rx's Medication Instructions Recorded Orphenadrine [Norflex] 100 mg PO Q12H #12 tablet.er 07/28/20 predniSONE [Deltasone] 20 mg PO BID #6 tab 07/28/20 traMADol HCL [Ultram] 50 mg PO Q4HR PRN 3 Days #18 tab 07/28/20 Allergies Allergy/AdvReac Type Severity Reaction Status Date / Time aspirin Allergy Rash/Hives Verified 07/28/20 11:12 codeine Allergy Rash/Hives Verified 07/28/20 11:12 lincomycin HCl Allergy Anaphylaxis Verified 07/28/20 11:12 [From Lincocin] midazolam HCl [From Versed] Allergy Rapid Verified 07/28/20 11:12 Heart Rate naproxen [From Naprosyn] Allergy Anaphylaxis Verified 07/28/20 11:12 Penicillins Allergy Rash/Hives Verified 07/28/20 11:12 Sulfa (Sulfonamide Allergy Rash/Hives Verified 07/28/20 11:12 Antibiotics) Review of Systems ROS Statement: Those systems with pertinent positive or pertinent negative responses have been documented in the HPI. ROS Other: All systems not noted in ROS Statement are negative. Past Medical History Past Medical History: Cancer, Eye Disorder, GERD/Reflux, Hearing Disorder / Deafness, Thyroid Disorder Additional Past Medical History / Comment(s): VERTIGO. HX ARRYTHMIA, NO TX NEEDED. ALLERGIES. CA FACE. DRY EYES. EXCESSIVE DIARRHEA ON/OFF FOR FEW MONTHS, HX C-DIFF. Sciatica History of Any Multi-Drug Resistant Organisms: C-DIFF Date of last positivie culture/infection: 2016 MDRO Source:: stool Past Surgical History: Appendectomy, Hernia Repair, Tubal Ligation Additional Past Surgical History / Comment(s): CHELA Shoulder. Cataracts. INGUINAL HERNIA REPAIR. COLONOSCOPY. Past Anesthesia/Blood Transfusion Reactions: No Reported Reaction Past Psychological History: Anxiety Smoking Status: Never smoker Past Alcohol Use History: None Reported Past Drug Use History: None Reported - Past Family History Mother Family Medical History: CVA/TIA Father Family Medical History: Myocardial Infarction (MO) General Exam - General Exam Comments Initial Comments: 84-year-old female. Alert and oriented 3. No distress. Limitations: no limitations General appearance: alert, in no apparent distress Head exam: Present: atraumatic, normocephalic, normal inspection Eye exam: Present: normal appearance, PERRL, EOMI. Absent: scleral icterus, conjunctival injection, periorbital swelling ENT exam: Present: normal exam, mucous membranes moist Neck exam: Present: normal inspection. Absent: tenderness, meningismus, lymphadenopathy Respiratory exam: Present: normal lung sounds bilaterally. Absent: respiratory distress, wheezes, rales, rhonchi, stridor Cardiovascular Exam: Present: regular rate, normal rhythm, normal heart sounds. Absent: systolic murmur, diastolic murmur, rubs, gallop, clicks GI/Abdominal exam: Present: soft, normal bowel sounds. Absent: distended, tenderness, guarding, rebound, rigid Extremities exam: Present: normal inspection, full ROM, normal capillary refill. Absent: tenderness, pedal edema, joint swelling, calf tenderness Back exam: Present: normal inspection, tenderness (Chest tenderness over the lumbar sciatic notch on the right side. No rashes. Large motion knee and ankle. Dorsalis pedis pulses 2+ bilaterally.) Neurological exam: Present: alert, oriented X3, CN II-XII intact Psychiatric exam: Present: normal affect, normal mood Skin exam: Present: warm, dry, intact, normal color. Absent: rash Course Vital Signs 07/28/20 10:07 Temperature 98.2 F Pulse Rate 67 Respiratory 18 Rate Blood Pressure 165/67 O2 Sat by Pulse 97 Oximetry Medical Decision Making - Medical Decision Making 84-year-old female presents with chronic back pain with radiation down right leg consistent with sciatica. She has an MRI scheduled for tomorrow. Patient was given IM analgesia does report improvement of symptoms. She does have ALLERGY to multiple pain medication. Discussed that Ultram is not listed on ALLERGY listed she did have an oral dose of Ultram with no reaction emergency department. I discussed discharging the Patient with this pain medication continue muscle relaxers and short course of steroid for a temperature medicine until she can follow-up with her MRI tomorrow. Discussed return parameters. Disposition Clinical Impression: Chronic back pain, Sciatica Disposition: HOME SELF-CARE Condition: Good Instructions (If sedation given, give patient instructions): Sciatica (ED), Lumbar Radiculopathy (ED) Additional Instructions: Follow-up with your MRI scheduled tomorrow. Return to the emergency department if any alarming signs or symptoms occur. Take the Ultram and medications as prescribed. Prescriptions: predniSONE [Deltasone] 20 mg PO BID #6 tab Orphenadrine [Norflex] 100 mg PO Q12H #12 tablet.er traMADol HCL [Ultram] 50 mg PO Q4HR PRN 3 Days #18 tab PRN Reason: Pain Is patient prescribed a controlled substance at d/c from ED?: No Referrals: Emma Solis MD [Primary Care Provider] - 1-2 days Time of Disposition: 11:22
[2020-07-28 11:38] VITALS: BP 119/74; PULSE 60; RESP 14; TEMP 97.9
== END 2020-07-28 11:40 | disposition home or self-care (01) ==
LOC: EC 10:04
DX: M54.31 Sciatica, right side (principal); G89.29 Other chronic pain; M54.9 Dorsalgia, unspecified; K21.9 Gastro-esophageal reflux disease without esophagitis; E07.9 Disorder of thyroid, unspecified; Z79.890 Hormone replacement therapy; Z79.899 Other long term (current) drug therapy; Z88.0 Allergy status to penicillin; Z88.2 Allergy status to sulfonamides; Z88.5 Allergy status to narcotic agent; Z88.6 Allergy status to analgesic agent
CPT/HCPCS: 99283 ×2; 96372 ×4; J2270; J2360; J2930

== ENCOUNTER → 2020-09-07 | Outpatient (CLI) | payer MEDICARE ==
--- NOTE | 2020-09-07 16:06 | MR ---
EXAMINATION TYPE: MR pancreas wo/w con DATE OF EXAM: 09/07/2020 COMPARISON: CT abdomen and pelvis March 25, 2018 HISTORY: Disease of pancreas, unspecified. Outside imaging MRI of lumbar noted 7mm pancreatic mass. CONTRAST: Standard multiplanar, multisequence MRI departmental protocol utilizing 7 mL intravenous Gadavist karyn olinium contrast. Imaging is performed of the abdomen focusing on the pancreas. FINDINGS: Exam is suboptimal as patient unable to hold breath which is typical of patient of this age . Pancreas: Pancreas remains normal in size. In the mid to distal body there is a round 8 mm T2 hyperin tense lesion seen best series 601 image 28 without postcontrast enhancement consistent with thin-wall ed cyst or cystic mass. This likely was present 2018 CT axial image 23 measuring 4 mm on that study. Lesion measures 11 mm coronal image 18 series 301 in close proximity to the adjacent pancreatic duct. Pancreatic duct is seen but not suspiciously dilated. No additional solid or cystic pancreatic mass noted. Other: Slightly prominent left hepatic lobe redemonstrated. Lung bases remain clear. Gallbladder show s intraluminal gallstones. Spleen and both adrenal glands remain within normal limits. No concerning renal mass or hydronephrosis. No suspicious small or large bowel dilatation. No intra-abdominal ascit es. Visualized osseous structures are intact IMPRESSION: A suboptimal study. There is 8 x 11 mm thin-walled cyst or cystic lesion mid to distal pa ncreatic body shows some interval slight enlargement from 2018 CT. Differential includes a slowly hawa wing pancreatic cystic mass or neoplasm versus IPMN ; connection with pancreatic duct cannot be asses sed without MRCP imaging. The lesion almost certainly benign in etiology. ACR advice is repeat imagin g in 2 years time to reassess inpatient over age 80.
== END | disposition home or self-care (01) ==
LOC: RADMRIMAIN 12:52
PROVIDERS: ATTEND Family Medicine
DX: K86.89 Other specified diseases of pancreas (principal)
CPT/HCPCS: 74183; A9585

== ENCOUNTER 2021-03-11 13:11 | Day surgery (SDC) | payer MEDICARE ==
[2021-03-10 09:29] VITALS: BMI 21.3
[~2021-03-11 13:11] MED LIST changes: -LIDOCAINE 1% 20 ML VIAL (10MG/ML) FOR IV START INTRADERMA PRN
[2021-03-11 13:47] VITALS: RESP 16; TEMP 98.1
[2021-03-11] MEDS ORDERED: PROPOFOL 10 MG/ML 20 ML VIAL IV ONE (14:46)
--- NOTE | 2021-03-11 15:06 | P.PCN ---
Date of Procedure: 03/11/21 Procedure(s) Performed: BRIEF HISTORY: Patient is a 85-year-old pleasant white female scheduled for an elective colonoscopy as a part of evaluation of chronic diarrhea for the last several months duration. PROCEDURE PERFORMED: Colonoscopy with biopsy. PREOPERATIVE DIAGNOSIS: Chronic Diarrhea. IV sedation per Anesthesia. PROCEDURE: After informed consent was obtained, the patient, was brought into the endoscopy unit. IV sedation was administered by Anesthesia under continuous monitoring. Digital rectal examination was normal. Initially the Olympus CF-160 flexible video colonoscope was then inserted in the rectum, gradually advanced into the cecum without any difficulty. Careful examination was performed as the scope was gradually being withdrawn. Ileocecal valve and the appendiceal orifice were visualized and appeared normal. Prep was excellent. Mucosa of the cecum, ascending colon, transverse colon, descending colon, sigmoid colon, and rectum appeared normal. Random biopsies were done from ascending and descending colon to rule out metastatic/collagenous colitis Retroflexion was performed in the rectum and no lesions were seen. The patient tolerated the procedure well. IMPRESSION: Normal-appearing colon from rectum to cecum with no evidence of colorectal neoplasia. RECOMMENDATIONS: Findings of this examination were discussed with the patient is a family. She was advised to follow with the biopsy sites. She'll be seen in office in 1 week.
[2021-03-11 15:24] VITALS: BP 135/72; PULSE 54
== END 2021-03-11 15:41 ==
LOC: ORWHC2ENDO 13:11
PROVIDERS: ATTEND Internal Medicine Gastroenterology
DX: K52.832 Lymphocytic colitis (principal); E07.9 Disorder of thyroid, unspecified; K21.9 Gastro-esophageal reflux disease without esophagitis; Z79.890 Hormone replacement therapy; Z79.899 Other long term (current) drug therapy; Z88.6 Allergy status to analgesic agent; Z88.0 Allergy status to penicillin; Z88.2 Allergy status to sulfonamides; Z88.1 Allergy status to other antibiotic agents; Z88.5 Allergy status to narcotic agent
CPT/HCPCS: 88305; 45380; J2704

== ENCOUNTER → 2021-10-31 | Outpatient (CLI) | payer MEDICARE ==
--- NOTE | 2021-10-31 10:13 | BD ---
EXAMINATION TYPE: Axial Bone Density DATE OF EXAM: 10/31/2021 COMPARISON: 03/21/2001 CLINICAL HISTORY: Postmenopausal screening Height: 65.5 IN Weight: 136 LBS RISK FACTORS HISTORY OF: Active: YES Postmenopausal woman: AGE 44 Take estrogen and/or progesterone medications: NOT NOW How long: TOOK FOR 10 YEARS Lost more than 2 inches in height since high school: YES 10/02" MEDICATIONS: Thyroid Medications: YES Which medication: Levothyroxine How Lon YEARS AGO Additional Medications: LEVOTHYROXINE, VIT D, OMEPRAZOLE, Additional History: SPIND[employer]CER EXAM MEASUREMENTS: Bone mineral densitometry was performed using the [employer] System. Bone mineral density as measured about the Lumbar spine is: ----- L1-L4(G/cm2): 0.930 T Score Values are as follows: ----- L2: -2.7 ----- L3: -1.5 ----- L4: -2.1 ----- L1-L4: -2.1 Bone mineral density has: Decreased -21.5% since study of: 03/21/2001 Bone mineral density about the R hip (g/cm2): 0.821 Bone mineral density about the L hip (g/cm2): 0.867 T Score values are as follows: -----R Neck: -1.6 -----L Neck: -1.2 -----R Total: -1.6 -----L Total: -1.3 Bone mineral density has: Decreased -15.7% since study of: 03/21/2001 IMPRESSION: Osteopenia (T Score between -2.5 and -1). There is slightly increased risk of fracture and the patient may be considered for treatment. Re-Screen 2-5 years. NOTE: T-SCORE=SD OF THE YOUNG ADULT MEAN.
== END | disposition home or self-care (01) ==
LOC: RADBDWWP 09:06
PROVIDERS: ATTEND Family Medicine
DX: M85.89 Other specified disorders of bone density and structure, multiple sites (principal); Z78.0 Asymptomatic menopausal state
CPT/HCPCS: 77080

== ENCOUNTER 2022-03-28 15:59 | Inpatient (IN) | payer MEDICARE ==
[2022-03-28] MEDS ORDERED: Alteplase PER PHARMACY Stroke 1 EACH MISC MISCELLANE PRN (16:03)
[2022-03-28] MEDS ORDERED: ALTEPLASE BOLUS FOR STROKE 6 MG in EMPTY SYRINGE 1 SYR IV STA (16:18)
[2022-03-28] MEDS ORDERED: ALTEPLASE 51 MG in EMPTY BAG 1 BAG IV STA (16:18)
--- NOTE | 2022-03-28 16:23 | CT ---
EXAMINATION TYPE: CT brain wo con for TPA DATE OF EXAM: 03/28/2022 COMPARISON: CT dated 11/25/2016 HISTORY: Neuro deficits, stroke suspected CT DLP: 1192.6 mGycm Automated exposure control for dose reduction was used. TECHNIQUE: CT scan of the brain is performed without IV contrast administration. FINDINGS: Suboptimal CT scan with artifactual images. Bilateral cerebral white matter hypodensities likely repr esenting chronic ischemic changes. No acute intracranial hemorrhage. No gross acute cortical infarct. No midline shift, herniation or ventriculomegaly. Unremarkable basal cisterns, sella and CP angles. N o gross space-occupying lesion, vasogenic edema or mass effect. Unremarkable orbits. Clear visualized paranasal sinuses and mastoid air cells. Osteopenia. IMPRESSION: No acute intracranial hemorrhage or gross acute cortical infarct with the limitation of the artifactu al images. Small acute or hyperacute infarct cannot be excluded by this CT scan. Other findings as de scribed above.
--- NOTE | 2022-03-28 16:37 | ED ---
General Adult HPI - General Stated complaint: stroke symptoms Time Seen by Provider: 03/28/22 16:01 Source: RN notes reviewed, old records reviewed - History of Present Illness Initial comments: Patient is an 86-year-old female with past medical history remarkable for thyroid disorder, GERD who presents emergency Department from her orthopedic physician's office over concern for stroke. Last known well was at approximately 1735. Patient was presented to her doctor's office due to a fall yesterday was complaining of left hip and leg pain. History is obtained from EMS as well as patient's friend, Lluvia whose number is located in the chart. Lluvia states that she saw the patient leave at approximately 2:30pm and she was acting normally, able to walk. No confusion. No facial droop. No aphasia. At the doctor's office per EMS, patient was normal and then suddenly became more confused. They noticed some right gaze deviation, left-sided facial droop, left leg weakness. She also is aphasic and dysarthric. Brought her here for further evaluation. Accu-Chek is within normal limits. Patient was made a code altepla se prior to arrival. No known blood thinners. No known trauma. No history of intracranial surgery. - Related Data Home Medications Medication Instructions Recorded Confirmed Levothyroxine Sodium [Synthroid] 112 mcg PO DAILY 07/28/20 03/28/22 Omeprazole 20 mg PO DAILY 03/28/22 03/28/22 Allergies Allergy/AdvReac Type Severity Reaction Status Date / Time aspirin Allergy Rash/Hives Verified 03/10/21 09:04 codeine Allergy Rash/Hives Verified 03/10/21 09:04 lincomycin HCl Allergy Anaphylaxis Verified 03/10/21 09:04 [From Lincocin] lorazepam [From Ativan] Allergy passed out Verified 03/10/21 10:20 midazolam HCl [From Versed] Allergy Rapid Verified 03/10/21 09:04 Heart Rate naproxen [From Naprosyn] Allergy Anaphylaxis Verified 03/10/21 09:04 Penicillins Allergy Rash/Hives Verified 03/28/22 17:50 Sulfa (Sulfonamide Allergy Rash/Hives Verified 03/10/21 09:04 Antibiotics) Review of Systems ROS Statement: Those systems with pertinent positive or pertinent negative responses have been documented in the HPI. Difficulty obtain due to patient's current clinical status. ROS Other: All systems not noted in ROS Statement are negative. Past Medical History Past Medical History: Cancer, Eye Disorder, GERD/Reflux, Hearing Disorder / Deafness, Thyroid Disorder Additional Past Medical History / Comment(s): VERTIGO. HX ARRYTHMIA, NO TX NEEDED. ALLERGIES. CA FACE. DRY EYES. EXCESSIVE DIARRHEA for several months & increasing recently, HX C-DIFF. Sciatica, spinal stenosis History of Any Multi-Drug Resistant Organisms: C-DIFF Date of last positivie culture/infection: 2016 MDRO Source:: stool Past Surgical History: Appendectomy, Hernia Repair, Orthopedic Surgery, Tubal Ligation Additional Past Surgical History / Comment(s): CHELA Shoulder. Cataracts. INGUINAL HERNIA REPAIR. COLONOSCOPY. Past Anesthesia/Blood Transfusion Reactions: No Reported Reaction Smoking Status: Never smoker - Past Family History Mother Family Medical History: CVA/TIA Father Family Medical History: Myocardial Infarction ([place]) General Exam - General Exam Comments Initial Comments: General: Appears in no acute distress. HEAD: Normal with no signs of head trauma. EYES: PERRLA, EOMI, conjunctiva normal, no discharge. Pupils are 3 mm and equal bilaterally. No gaze deviation ENT: Hearing grossly intact, has hearing aides, normal oropharynx. RESPIRATORY: Clear breath sounds bilaterally. No wheezes, rales, or rhonchi. C/V: Regular rate and rhythm. S1 and S2 auscultated, no edema, peripheral pulses 2+ and intact throughout ABD: Abd is soft, nontender, nondistended EXT: Normal range of motion, no obvious deformity SKIN: No rashes or lesions observed on exposed skin. NEURO: Alert but not oriented. Difficult to obtain accurate neurological exam due to patient's current clinical status. NIH is 9, 2 points for wrong month and age, 2 points for lower face paralysis on left, 2 points for left leg wea kness, some effort against gravity, 1 point for ataxia in left lower extremity, 1 point for aphasia, 1 point for dysarthria. GCS of 15. Course Vital Signs 03/28/22 03/28/22 03/28/22 16:15 16:30 16:45 Temperature 97.1 F L Pulse Rate 68 70 75 Respiratory 16 16 16 Rate Blood Pressure 137/97 141/88 142/64 O2 Sat by Pulse 100 100 100 Oximetry 03/28/22 03/28/22 03/28/22 17:00 17:15 17:30 Temperature Pulse Rate 72 72 71 Respiratory 16 16 18 Rate Blood Pressure 151/76 148/73 151/81 O2 Sat by Pulse 100 100 100 Oximetry 03/28/22 03/28/22 17:45 18:22 Temperature 97.8 F Pulse Rate 66 61 Respiratory 18 18 Rate Blood Pressure 135/90 120/91 O2 Sat by Pulse 100 97 Oximetry Medical Decision Making - Medical Decision Making On the patient's presentation and physical exam, patient does present as a code alteplase. She was immediately taken to CT imaging for computed tomography scan of the brain and CT angiogram of the brain. Per EMS, patient has no family in the area. Patient cannot consent for TPA at this time by herself. I did discuss the case with the neuro interventional is, Dr. Hernandez who was in agr eement with attempting to reach family, but they both agreed that TPA we believe is still administered about this time due to her severity of symptoms and hopefully benefits. I was able to contact the patient's son, Roney at [phone] who was in agreement with the plan for TPA the patient qualifies. Vital signs include blood pressure are within normal limits. Patient's glucose is within normal limits. CT brain revealed no signs of intracranial hemorrhage. TPA was ordered and at bedside. Patient remains unable to consent for TPA due to her confusion, aphasia. NIH stroke scale remains unchanged at 9. Roney did consent for TPA. Dr. Hernandez did evaluate the patient CT imaging and showed no acute intracranial hemorrhage as well as no acute large vessel occlusion on CT angiogram. Still recommended TPA. After TPA, recommended admission to the ICU for close monitoring and neurology consult. Patient will be administered tPA. TPA bolus at 1627. TPA drip at 1629. Patient's O2 sats studies are remarkable for a mild hyponatremia of 124. Patient has a mildly decreased bicarb at 20. Troponin is undetectable. Urine is still pending at this time. Glucose is within normal limits. Radiology read the CT brain as no acute intracranial hemorrhage or abnormality. CT angiogram revealed no large vessel occlusion. Chest x-ray shows no acute cardiopulmonary process. Pelvis x-ray reveals no acute process. On reevaluation, NIH stroke scale is now improved to 7. Vital signs remained within normal limits. I discussed with the patient's family friend who is at bedside as well as contacted Lucio to update him on the patient as well as the patient's granddaughter who is a PA, Laxmi who can be reached at [phone]. I answered all questions that they had. Symptoms were acute in onset at the physician's office. Neurology agreement this plan. Patient will be admitted to the ICU. I spoke with the neurologist on-call, Dr. Torres who agreed with the plan and will evaluate the patient. I consulted the ICU attending, Dr. Alcala who accepted the patient. I spoke with Caro of [facility] who accepted the patient. Patient was admitted to Dr. Wynn in stable condition. - Lab Data Result diagrams: 03/28/22 16:28 03/28/22 16:28 Lab Results 03/28/22 03/28/22 03/28/22 Range/Units 16:28 16:28 16:28 WBC 8.1 (3.8-10.6) k/uL RBC 4.14 (3.80-5.40) m/uL Hgb 12.8 (11.4-16.0) gm/dL Hct 38.1 (34.0-46.0) % MCV 92.1 (80.0-100.0) fL MCH 31.1 (25.0-35.0) pg MCHC 33.7 (31.0-37.0) g/dL RDW 12.4 (11.5-15.5) % Plt Count 363 (150-450) k/uL MPV 7.6 Neutrophils % 58 % Lymphocytes % 31 % Monocytes % 8 % Eosinophils % 1 % Basophils % 1 % Neutrophils # 4.6 (1.3-7.7) k/uL Lymphocytes # 2.5 (1.0-4.8) k/uL Monocytes # 0.6 (0-1.0) k/uL Eosinophils # 0.1 (0-0.7) k/uL Basophils # 0.1 (0-0.2) k/uL PT 10.9 (9.0-12.0) sec INR 1.0 (<1.2) APTT 25.3 (22.0-30.0) sec Sodium 124 L (137-145) mmol/L Potassium 4.0 (3.5-5.1) mmol/L Chloride 91 L (98-107) mmol/L Carbon Dioxide 20 L (22-30) mmol/L Anion Gap 13 mmol/L BUN 17 (7-17) mg/dL Creatinine 0.68 (0.52-1.04) mg/dL Est GFR (CKD-EPI)AfAm >90 (>60 ml/min/1.73 sqM) Est GFR (CKD-EPI)NonAf 79 (>60 ml/min/1.73 sqM) Glucose 111 H (74-99) mg/dL POC Glucose (mg/dL) (70-110) mg/dL POC Glu Utility Manager ID Calcium 8.7 (8.4-10.2) mg/dL Total Bilirubin 0.5 (0.2-1.3) mg/dL AST 18 (14-36) U/L ALT 13 (4-34) U/L Alkaline Phosphatase 93 (38-126) U/L Troponin I (0.000-0.034) ng/mL Total Protein 6.3 (6.3-8.2) g/dL Albumin 3.7 (3.5-5.0) g/dL 03/28/22 03/28/22 Range/Units 16:28 16:31 WBC (3.8-10.6) k/uL RBC (3.80-5.40) m/uL Hgb (11.4-16.0) gm/dL Hct (34.0-46.0) % MCV (80.0-100.0) fL MCH (25.0-35.0) pg MCHC (31.0-37.0) g/dL RDW (11.5-15.5) % Plt Count (150-450) k/uL MPV Neutrophils % % Lymphocytes % % Monocytes % % Eosinophils % % Basophils % % Neutrophils # (1.3-7.7) k/uL Lymphocytes # (1.0-4.8) k/uL Monocytes # (0-1.0) k/uL Eosinophils # (0-0.7) k/uL Basophils # (0-0.2) k/uL PT (9.0-12.0) sec INR (<1.2) APTT (22.0-30.0) sec Sodium (137-145) mmol/L Potassium (3.5-5.1) mmol/L Chloride (98-107) mmol/L Carbon Dioxide (22-30) mmol/L Anion Gap mmol/L BUN (7-17) mg/dL Creatinine (0.52-1.04) mg/dL Est GFR (CKD-EPI)AfAm (>60 ml/min/1.73 sqM) Est GFR (CKD-EPI)NonAf (>60 ml/min/1.73 sqM) Glucose (74-99) mg/dL POC Glucose (mg/dL) 105 (70-110) mg/dL POC Glu Utility Manager ID Vonnie Patel Calcium (8.4-10.2) mg/dL Total Bilirubin (0.2-1.3) mg/dL AST (14-36) U/L ALT (4-34) U/L Alkaline Phosphatase (38-126) U/L Troponin I <0.012 (0.000-0.034) ng/mL Total Protein (6.3-8.2) g/dL Albumin (3.5-5.0) g/dL - EKG Data -: EKG Interpreted by Me EKG Comments: 12-lead Electrocardiogram Interpretation Note EKG was reviewed and interpreted by myself. 12-lead ECG performed at 1624 is interpreted by me as revealing normal sinus rhythm at a rate of 69 beats per minute. [place] is normal. [place] interval is 175 ms, QRS duration is 89 ms, QTc is 430 ms.. There were no ST or T wave abnormalities to suggest myocardial ischemia or injury. R wave progression across the precordium was satisfactory. By my interpretation this EKG is non-diagnostic for acute ischemia. Critical Care Time Critical Care Time: Yes Total Critical Care Time: 35 Critical Care Time: Upon my evaluation, this patient had a high probability of imminent or life- threatening deterioration due to CVA given TPA, which required my direct attention, intervention, and personal management. I have personally provided 35 minutes of critical care time exclusive of time spent on separately billable procedures. Time includes review of laboratory data, radiology results, discussion with consultants, and monitoring for potential decompensation. Interventions were performed as documented in my note. Disposition Clinical Impression: Cerebrovascular accident (CVA), Hyponatremia Disposition: ADMITTED IP TO THIS [facility] Condition: Serious Time of Disposition: 17:18
[2022-03-28 16:38] LABS: Glucose,Whole Blood 105 mg/dL (70-110)
[2022-03-28 16:40] LABS: Basophils # (A) 0.1 k/uL (0-0.2); Basophils % (A) 1 %; Eosinophils # (A) 0.1 k/uL (0-0.7); Eosinophils % (A) 1 %; HCT 38.1 % (34.0-46.0); HGB 12.8 gm/dL (11.4-16.0); Lymphocytes # (A) 2.5 k/uL (1.0-4.8); Lymphocytes % (A) 31 %; MCH 31.1 pg (25.0-35.0); MCHC 33.7 g/dL (31.0-37.0); MCV 92.1 fL (80.0-100.0); Mean Platelet Volume 7.6; Monocytes # (A) 0.6 k/uL (0-1.0); Monocytes % (A) 8 %; Neutrophils # (A) 4.6 k/uL (1.3-7.7); Neutrophils % (A) 58 %; Platelet Count 363 k/uL (150-450); RBC 4.14 m/uL (3.80-5.40); RDW 12.4 % (11.5-15.5); WBC 8.1 k/uL (3.8-10.6)
[2022-03-28 16:47] LABS: ALT 13 U/L (4-34); AST 18 U/L (14-36); African American GFR (CKD) >90 (>60 ml/min/1.73 sqM); Albumin 3.7 g/dL (3.5-5.0); Alkaline Phosphatase 93 U/L (38-126); Anion Gap 13 mmol/L; Blood Urea Nitrogen 17 mg/dL (7-17); Calcium 8.7 mg/dL (8.4-10.2); Carbon Dioxide 20 mmol/L (22-30); Chloride 91 mmol/L (98-107); Glucose 111 mg/dL (74-99); Non-African American GFR(CKD) 79 (>60 ml/min/1.73 sqM); Sodium 124 mmol/L (137-145); Total Bilirubin 0.5 mg/dL (0.2-1.3); Total Protein 6.3 g/dL (6.3-8.2)
[2022-03-28] MEDS ORDERED: SODIUM CHLORIDE 0.9% 1,000 ML IV STA (16:59)
[2022-03-28 17:09] LABS: Partial Thromboplastin Time 25.3 sec (22.0-30.0); Prothrombin Time 10.9 sec (9.0-12.0)
--- NOTE | 2022-03-28 17:17 | CT ---
EXAMINATION TYPE: CT angio head neck DATE OF EXAM: 03/28/2022 COMPARISON: None HISTORY: Neuro deficits code stroke CT DLP: 394.8 mGycm Automated exposure control for dose reduction was used. CONTRAST: Performed with IV Contrast, patient injected with 65 mL of Isovue 370. Images obtained from the aortic arch to the vertex of the brain with IV contrast. There are Three-D p ostprocessed images. FINDINGS: There is normal branching pattern of the great vessels on the aortic arch. There is arterial flow in both subclavian arteries. There is infiltrate at both lung apices. There is arterial flow in the comm on internal and external carotid arteries bilaterally. There is wide patency of the carotid artery bi furcations. There is arterial flow in both vertebral arteries. There is arterial flow in the vertebra l basilar artery system. No evidence of carotid or vertebral artery aneurysm or dissection. There is arterial flow in the anterior middle and posterior cerebral arteries bilaterally. No evidenc e of intracranial aneurysm or neovascularity. No mass effect. No evidence of hemodynamic stenosis. Th ere is normal enhancement of the venous sinuses. IMPRESSION: Negative CT angiogram of the neck. Negative CT angiogram of the brain.
[2022-03-28] MEDS ORDERED: SODIUM CHLORIDE 0.9% 50 ML MINI-BAG IV ONE ×2 (17:19→18:25)
--- NOTE | 2022-03-28 17:33 | XR ---
EXAMINATION TYPE: XR chest 1V DATE OF EXAM: 03/28/2022 COMPARISON: 02/04/2020 HISTORY: Altered mental status TECHNIQUE: FINDINGS: Heart is normal. Lungs are clear. Diaphragm is normal. Bony thorax is intact. There is some pleural thickening at the lung apices. IMPRESSION: No active cardiopulmonary disease. No change.
--- NOTE | 2022-03-28 17:35 | XR ---
EXAMINATION TYPE: XR pelvis AP view DATE OF EXAM: 03/28/2022 COMPARISON: 06/24/2018 HISTORY: Pain TECHNIQUE: Single view FINDINGS: Pelvic ring is intact. There is contrast in the urinary bladder. Proximal femurs and hip luz ints are intact. IMPRESSION: Negative pelvis xray exam. No fracture seen.
[2022-03-28 18:13] LABS: Glucose,Whole Blood 121 mg/dL (70-110)
[2022-03-28] MEDS ORDERED: SODIUM CHLORIDE 3%(HYPERTONIC) 500 ML IV SCH (20:00)
[2022-03-28] MEDS: PANTOPRAZOLE 40 MG/10 ML VIAL IVP SCH (20:48)
[2022-03-28 22:45] LABS: Appearance,Urine Clear (Clear); Bilirubin,Urine Negative (Negative); Blood,Urine Moderate (Negative); Color,Urine Yellow; Glucose,Urine (UA) Negative (Negative); Ketones,Urine 1+ (Negative); Leukocyte Esterase,Urine Negative (Negative); Nitrite,Urine Negative (Negative); PH, Urine 6.5 (5.0-8.0); Protein,Urine Negative (Negative); RBC,Urine 31 /hpf (0-5); Specific Gravity,Urine 1.037 (1.001-1.035); Urobilinogen,Urine <2.0 mg/dL (<2.0); WBC,Urine 3 /hpf (0-5)
[2022-03-28 22:51] LABS: Amphetamine Screen,Urine Not Detected (NotDetected); Barbiturate Screen,Urine Not Detected (NotDetected); Benzodiazepines Screen,Urine Not Detected (NotDetected); Cocaine Screen,Urine Not Detected (NotDetected); Methadone Screen, Urine Not Detected (NotDetected); Opiate Screen,Urine Not Detected (NotDetected); Oxycodone Screen, Urine Not Detected (NotDetected); Phencyclidine Screen,Urine Not Detected (NotDetected); Tricyclic Antidepressant,Urine Not Detected (NotDetected); Urn Cannabinoid Scrn Not Detected (NotDetected)
[2022-03-29] MEDS ORDERED: LEVOTHYROXINE 112 MCG TAB PO SCH (06:30)
[2022-03-29 06:54] LABS: Glucose,Whole Blood 117 mg/dL (70-110)
[2022-03-29 08:06] LABS: Basophils % (A) 1 %; Eosinophils # (A) 0.1 k/uL (0-0.7); Eosinophils % (A) 1 %; HCT 40.8 % (34.0-46.0); HGB 13.4 gm/dL (11.4-16.0); Lymphocytes # (A) 1.4 k/uL (1.0-4.8); Lymphocytes % (A) 21 %; MCH 30.4 pg (25.0-35.0); MCHC 32.8 g/dL (31.0-37.0); MCV 92.7 fL (80.0-100.0); Mean Platelet Volume 7.3; Monocytes # (A) 0.4 k/uL (0-1.0); Monocytes % (A) 7 %; Neutrophils # (A) 4.6 k/uL (1.3-7.7); Neutrophils % (A) 69 %; Platelet Count 377 k/uL (150-450); RDW 12.7 % (11.5-15.5); WBC 6.7 k/uL (3.8-10.6)
[2022-03-29 08:21] LABS: African American GFR (CKD) >90 (>60 ml/min/1.73 sqM); Anion Gap 10 mmol/L; Blood Urea Nitrogen 12 mg/dL (7-17); Calcium 8.6 mg/dL (8.4-10.2); Carbon Dioxide 21 mmol/L (22-30); Chloride 100 mmol/L (98-107); Glucose 154 mg/dL (74-99); Magnesium 1.9 mg/dL (1.6-2.3); Non-African American GFR(CKD) 82 (>60 ml/min/1.73 sqM); Potassium 3.8 mmol/L (3.5-5.1); Sodium 131 mmol/L (137-145)
[2022-03-29] MEDS: PANTOPRAZOLE 40 MG/10 ML VIAL IVP SCH (09:00)
[2022-03-29 09:17] LABS: Chol/HDL Ratio 2.89 Ratio; LDL Cholesterol,Calculated 101.4 mg/dL (0.0-131.0); VLDL Calculation 15.66 mg/dL (5.00-40.00)
--- NOTE | 2022-03-29 09:47 | P.CNPUL ---
History of Present Illness Consult date: 03/29/22 Chief complaint: left sided weakness History of present illness: 86-year-old female patient who presented yesterday to the emergency and the debbie ent was brought in to the emergency because of a concern of his stroke. The patient was last known well yesterday 1734. The patient presented to her doctor's office due to a questionable fall/hip in the left hip area and leg pain. Obviously the patient is having difficulties with memory recalling stuff and she was also having difficulties communication and the history is not clear to me. In any rate, the patient was seen in her doctor's office for left hip pain. While being there, the patient started developing strokelike symptoms and EMS was called to the scene and the patient was brought in immediately to the burst department. The patient apparently got confused also at the doctor's office. She was noted to have a right gaze deviation, left facial droop and left lower extremity weakness. She was also aphasic and dysarthric. She was brought in. Called alteplase was initiated and a CT angiogram was done of the brain that showed no acute abnormalities and the computed tomography scan showed no evidence of any bleeding. Based on that, the patient was found to be a candidate for alteplase treatment. This was administered and the patient following that was brought into the intensive care unit. This morning, there is no motor weakness in her upper and lower extremities. Her speech is improved considerably and aphasia has recovered during her ICU stay. She was able to communicate with me. She was able to tell me where she was and she was able to also to call her date of . Nevertheless, she is having sometimes difficulties remembering spell. Much improved however. Neurologist on the case. Follow-up CAT scan of the brain will be done. Hemodynamically stable. Cardiac rhythm is sinus. Blood pressure is under adequate control. Noted the patient's sodium level was 124 at a time of admission. She was given normal saline and later on she was given hypertonic saline solution due to ongoing neurologic symptoms. Her sodium today is at 131 from a baseline of 124. Hypertonic saline was discontinued. The x-ray of the hip and the pelvis was negative. The chest x-ray was also within normal limits. Review of Systems Constitutional: Denies chills, Denies fever Eyes: denies as per HPI, denies blurred vision, denies bulging eye, denies decreased vision, denies diplopia, denies discharge, denies dry eye, denies irritation, denies itching, denies pain, denies photophobia, denies loss of peripheral vision, denies loss of vision, denies tunnel vision/blind spots Ears: deny: decreased hearing, ear discharge, earache, tinnitus Ears, nose, mouth and throat: Reports as per HPI Breasts: absent: as per HPI, change in shape, gynecomastia, masses, nipple discharge, pain, skin changes, swelling Cardiovascular: Reports as per HPI Respiratory: Reports as per HPI Gastrointestinal: Reports as per HPI Genitourinary: Reports as per HPI Menstruation: Reports as per HPI Musculoskeletal: Reports as per HPI Musculoskeletal: absent: ankle pain, ankle stiffness, ankle swelling Integumentary: Denies pruritus, Denies rash Neurological: Reports aphasia, Reports memory loss, Reports weakness Psychiatric: Reports as per HPI Endocrine: Reports as per HPI Hematologic/Lymphatic: Reports as per HPI Allergic/Immunologic: Reports as per HPI Past Medical History Past Medical History: Cancer, Eye Disorder, GERD/Reflux, Hearing Disorder / Deafness, Thyroid Disorder Additional Past Medical History / Comment(s): VERTIGO. HX ARRYTHMIA, NO TX NEEDED. ALLERGIES. CA FACE. DRY EYES. EXCESSIVE DIARRHEA for several months & increasing recently, HX C-DIFF. Sciatica, spinal stenosis History of Any Multi-Drug Resistant Organisms: C-DIFF Date of last positivie culture/infection: 2016 MDRO Source:: stool Past Surgical History: Appendectomy, Hernia Repair, Orthopedic Surgery, Tubal Ligation Additional Past Surgical History / Comment(s): CHELA Shoulder. Cataracts. INGUINAL HERNIA REPAIR. COLONOSCOPY. Past Anesthesia/Blood Transfusion Reactions: No Reported Reaction Smoking Status: Never smoker - Past Family History Mother Family Medical History: CVA/TIA Father Family Medical History: Myocardial Infarction ([place]) Medications and Allergies Home Medications Medication Instructions Recorded Confirmed Type Levothyroxine Sodium [Synthroid] 112 mcg PO DAILY 07/28/20 03/28/22 History Omeprazole 20 mg PO DAILY 03/28/22 03/28/22 History Allergies Allergy/AdvReac Type Severity Reaction Status Date / Time aspirin Allergy Rash/Hives Verified 03/10/21 09:04 codeine Allergy Rash/Hives Verified 03/10/21 09:04 lincomycin HCl Allergy Anaphylaxis Verified 03/10/21 09:04 [From Lincocin] lorazepam [From Ativan] Allergy passed out Verified 03/10/21 10:20 midazolam HCl [From Versed] Allergy Rapid Verified 03/10/21 09:04 Heart Rate naproxen [From Naprosyn] Allergy Anaphylaxis Verified 03/10/21 09:04 Penicillins Allergy Rash/Hives Verified 03/28/22 17:50 Sulfa (Sulfonamide Allergy Rash/Hives Verified 03/10/21 09:04 Antibiotics) Physical Exam Vitals: Vital Signs Temp Pulse Resp BP Pulse Ox FiO2 03/29/22 07:00 62 15 126/66 92 L 03/29/22 06:30 69 19 127/55 92 L 03/29/22 06:00 59 L 17 125/64 93 L 03/29/22 05:30 59 L 17 124/60 94 L 03/29/22 05:00 60 16 128/60 91 L 03/29/22 04:30 57 L 17 135/65 93 L 03/29/22 04:00 97.9 F 64 18 141/58 92 L 03/29/22 03:30 71 16 123/60 93 L 03/29/22 03:00 63 15 139/60 94 L 03/29/22 02:30 62 20 142/55 95 03/29/22 02:00 62 16 136/63 92 L 03/29/22 01:30 61 17 140/62 93 L 03/29/22 01:00 63 17 140/63 96 03/29/22 00:30 24 138/58 95 03/29/22 00:27 95 21 03/29/22 00:00 97.9 F 65 16 137/84 95 03/28/22 23:48 63 17 137/84 93 L 03/28/22 23:30 64 19 130/81 95 03/28/22 23:00 62 18 158/64 96 03/28/22 22:30 64 20 151/69 96 03/28/22 22:00 62 17 163/70 93 L 03/28/22 21:30 62 21 161/75 94 L 03/28/22 21:00 64 30 H 166/75 98 03/28/22 20:30 60 15 155/83 96 03/28/22 20:00 98.1 F 71 12 165/76 97 03/28/22 19:30 58 L 19 150/75 92 L 03/28/22 19:00 61 61 H 149/72 96 03/28/22 18:30 63 38 H 120/91 98 03/28/22 18:22 97.8 F 61 18 120/91 97 03/28/22 18:11 74 55 H 98 03/28/22 17:45 66 18 135/90 100 03/28/22 17:30 71 18 151/81 100 03/28/22 17:15 72 16 148/73 100 03/28/22 17:00 72 16 151/76 100 03/28/22 16:45 75 16 142/64 100 03/28/22 16:30 70 16 141/88 100 03/28/22 16:15 97.1 F L 68 16 137/97 100 Intake and Output 03/28/22 03/29/22 03/29/22 22:59 06:59 14:59 Intake Total 275 200 75 Output Total 3035 460 130 Balance -2760 -260 -55 Intake: IV 275 200 75 Sodium Chloride 0.9% 1, 200 000 ml @ 100 mls/hr IV . Q10H [facility] Rx#:[id number] Sodium Chloride 3%( 75 200 75 Hypertonic) 500 ml @ 25 mls/hr IV .Q20H [facility] Rx#: [id number] Output: Urine 2035 460 130 Uretheral (Mchugh) 1000 Post Void Residual 1000 Other: Voiding Method Indwelling Catheter Indwelling Catheter Weight 63.5 kg 64.5 kg Gen. appearance the patient is calm and comfortable and she is nonacute respiratory distress and the patient is currently on room air oxygen No headaches. No altered mentation. appeared well nourished and normally developed. Vital signs as documented. Head exam is unremarkable. No scleral icterus or corneal arcus noted. Neck is without jugular venous distension, thyromegaly, or carotid bruits. Carotid upstrokes are brisk bilaterally. Lungs are clear to auscultation and percussion. Cardiac exam reveals the PMI to be normally sized and situated. Rhythm is regular. First and second heart sounds normal. No murmurs, rubs or gallops. Abdominal exam reveals normal bowel sounds, no masses, no organomegaly and no aortic enlargement. Extremities are nonedematous and both femoral and pedal pulses are normal. Examination of the skin revealed no evidence of significant rashes, suspicious appearing nevi or other concerning lesions. Neurologically, the patient is awake and alert and the patient does not have any focal neurological deficit. Cranial nerves are essentially intact. Some difficulties in remembering things and her memories a bit slow both recent and old memory. Otherwise, no significant expressive aphasia. No facial asymmetry. No motor weakness. Pupils are equal and reactive to light. Gait was not assessed. Awaiting a formal neurologic examination by the neurologist. Results - Laboratory Findings CBC and BMP: 03/29/22 07:53 03/29/22 07:53 PT/INR, D-dimer PT 10.9 sec (9.0-12.0) 03/28/22 16: INR 1.0 (<1.2) 03/28/22 16:28 Abnormal lab findings: Abnormal Labs 03/28/22 03/28/22 03/28/22 16:04 16:28 18:11 Sodium 124 L Chloride 91 L Carbon Dioxide 20 L Glucose 111 H POC Glucose (mg/dL) 121 H HDL Cholesterol Ur Specific [place] 1.037 H Urine Ketones 1+ H Urine Blood Moderate H Urine RBC 31 H 03/28/22 03/28/22 03/29/22 20:02 22:22 01:17 Sodium 127 L 127 L Chloride Carbon Dioxide Glucose POC Glucose (mg/dL) HDL Cholesterol 61.90 H Ur Specific [place] Urine Ketones Urine Blood Urine RBC 03/29/22 03/29/22 03/29/22 01:17 06:53 07:53 Sodium 127 L 131 L Chloride Carbon Dioxide 21 L Glucose 154 H POC Glucose (mg/dL) 117 H HDL Cholesterol Ur Specific [place] Urine Ketones Urine Blood Urine RBC - Diagnostic Findings Chest x-ray: image reviewed Assessment and Plan Plan: Acute CVA with left facial droop, left weakness and aphasia, much improved post TPA administration. The patient has adequate recovery of the motor function on the left side. No facial asymmetry and his speech is improved. She is having some residual memory problems at this point in time. Neurologist on the case. The patient is going to follow-up CAT scan of the brain. Hyponatremia, improved and the sodium level is up to 131 Hypothyroidism, TSH and free T4 are within normal limits Sciatica with spinal stenosis Acid reflux Impaired hearing Skin cancer Plan Repeat CAT scan of the brain noncontrast Neurology consultation Discontinue the hypertonic saline and monitor the sodium levels Started patient on Lipitor 40 mg by mouth daily Obtain an echocardiogram Patient is ALLERGIC to aspirin. We'll consider Plavix and as will be further discussed with neurology Resume all medications including Synthroid 112 g by mouth daily, and the patient is currently on Protonix Monitor the ICU for another 24 hours. We'll continue to follow.
--- NOTE | 2022-03-29 10:46 | P.CNNES ---
History of Present Illness Consult date: 03/28/22 Requesting physician: Flynn Matta Reason for Consult: CVA, status post TPA History of Present Illness: Patient is a 86-year-old female came to the hospital by ambulance today at 3:59 PM. Patient not able to provide any history. As per EMS flow sheet, when they arrived, found patient seated in the chair. Patient was having aphasia, left- sided facial droop and gazing up to the right. Patient was at Dr. Elias's office and they reported that when she came in at 3 PM, she was acting fine. Patient's symptoms started approximately 3:35 PM per staff at doctor's office. Patient was very anxious, unable to communicate properly. Patient was unable to communicate her feeling of sensation but is able to follow commands of squeezing hands, symmetrical bilaterally and has plantar flexion and extension symmetrica lly bilaterally. Her blood pressure at the scene was 187/93 pulse rate 67 respiration 22 saturation 98% and blood sugar 116. Vital signs on arrival blood pressure 137/97, pulse rate 60 temperature 97.1. Blood test shows normal CBC, PT/PTT, sodium 124, potassium 4.0, normal renal function, normal hepatic panel and troponin. CT head revealed no acute intracranial hemorrhage or gross acute cortical infarct with the limitation of the artifactual images. Small acute or hyperacute infarct cannot be excluded. I personally reviewed CT head, and agreed is no acute process. Some small vessel ischemic disease noted. CTA of head and neck reported as negative. Chest x-ray showed no acute cardiac or disease. EKG with sinus rhythm with occasional supraventricular premature complexes. Patient's NIH stroke scale documented in the ED was 8-9. ED staff discuss case with stroke neurologist Dr. Hernandez, and patient was to consider a candidate for TPA. Patient received a bolus dose of TPA at 4:27 PM and the drip started at 4:29 PM. On reevaluation by the ED staff, patient's NA stroke scale was improved to 7. Patient's home medications include levothyroxine, omeprazole. Patient otherwise is very healthy, lives independent. When I came and saw the patient, patient appears very anxious, appeared hysterical, because not able to express herself. Patient has significant paraphasic errors, sometimes speaks sentences like "I can't do anything". Then she said "I'm getting wild". "I can't help you". "I can't pee anyone". "I need lemon laden". Patient has significant receptive and expressive aphasia. Patient's mouth is dry, she makes facial grimacing and acting very unusual. Very anxious that not able to express herself. She could not tell if she has any headache anywhere or pain anywhere. Review of Systems ROS unobtainable: due to mental status Past Medical History Past Medical History: Cancer, Eye Disorder, GERD/Reflux, Hearing Disorder / Deafness, Thyroid Disorder Additional Past Medical History / Comment(s): VERTIGO. HX ARRYTHMIA, NO TX NEEDED. ALLERGIES. CA FACE. DRY EYES. EXCESSIVE DIARRHEA for several months & increasing recently, HX C-DIFF. Sciatica, spinal stenosis History of Any Multi-Drug Resistant Organisms: C-DIFF Date of last positivie culture/infection: 2016 MDRO Source:: stool Past Surgical History: Appendectomy, Hernia Repair, Orthopedic Surgery, Tubal Ligation Additional Past Surgical History / Comment(s): CHELA Shoulder. Cataracts. INGUINAL HERNIA REPAIR. COLONOSCOPY. Past Anesthesia/Blood Transfusion Reactions: No Reported Reaction Smoking Status: Never smoker - Past Family History Mother Family Medical History: CVA/TIA Father Family Medical History: Myocardial Infarction ([place]) Medications and Allergies Home Medications Medication Instructions Recorded Confirmed Type Levothyroxine Sodium [Synthroid] 112 mcg PO DAILY 07/28/20 03/28/22 History Omeprazole 20 mg PO DAILY 03/28/22 03/28/22 History Allergies Allergy/AdvReac Type Severity Reaction Status Date / Time aspirin Allergy Rash/Hives Verified 03/10/21 09:04 codeine Allergy Rash/Hives Verified 03/10/21 09:04 lincomycin HCl Allergy Anaphylaxis Verified 03/10/21 09:04 [From Lincocin] lorazepam [From Ativan] Allergy passed out Verified 03/10/21 10:20 midazolam HCl [From Versed] Allergy Rapid Verified 03/10/21 09:04 Heart Rate naproxen [From Naprosyn] Allergy Anaphylaxis Verified 03/10/21 09:04 Penicillins Allergy Rash/Hives Verified 03/28/22 17:50 Sulfa (Sulfonamide Allergy Rash/Hives Verified 03/10/21 09:04 Antibiotics) Physical Examination - Vital Signs Vital Signs: Vital Signs Temp Pulse Resp BP Pulse Ox 03/28/22 18:22 97.8 F 61 18 120/91 97 03/28/22 17:45 66 18 135/90 100 03/28/22 17:30 71 18 151/81 100 03/28/22 17:15 72 16 148/73 100 03/28/22 17:00 72 16 151/76 100 03/28/22 16:45 75 16 142/64 100 03/28/22 16:30 70 16 141/88 100 03/28/22 16:15 97.1 F L 68 16 137/97 100 Intake and Output 03/28/22 03/28/22 03/28/22 06:59 14:59 22:59 Other: Weight 63.5 kg Patient is an elderly female, appears to be in distress because of not able to express herself. Patient gets frustrated, sometimes starts yelling. Patient is alert awake, not cooperating with the examination because of her aphasia and somewhat frustration. Patient could not tell what month year or her gait is it. Speech is clear, but and language functions show significant expressive and receptive aphasia. Attention, concentration and fund of knowledge is limited On cranial examination, pupils are round and reacting to light, visual johnson could not be tested although patient does not blink to visual threat on the right side it appears. Slightly neglects the right side. Her extraocular muscles are intact with no nystagmus. Face has mild left-sided facial droopiness. She would not protrude her tongue. Palatal elevation and sensation cannot be assessed. Her hearing appears normal and shoulder shrug and facial sensation cannot be assessed. On muscle strength testing, there is no pronator drift. Patient did not cooperate well with the examination. It appears her biceps, nurse practical are equal bilaterally. She could not understand to check for the triceps or deltoid. Patient able to lift her left leg and right leg independently without droopiness. No obvious motor deficits noted at this time. Deep tendon reflexes are 2+ all over and plantars are withdrawal bilaterally. Sensory to touch could not be assessed. Cerebellar function could not be assessed because of patient's noncooperation Tone and bulk of muscles normal. Gait not able to be checked. On general examination, there is no carotid bruit or murmur, S1-S2 audible. Abdomen is soft nontender. No organomegaly, bowel sounds present. Chest is clear. Peripheral pulses are present. No edema. Results - Laboratory Findings CBC and BMP: 03/29/22 07:53 03/29/22 07:53 Abnormal Lab Findings: Abnormal Labs 03/28/22 03/28/22 16:28 18:11 Sodium 124 L Chloride 91 L Carbon Dioxide 20 L Glucose 111 H POC Glucose (mg/dL) 121 H Assessment and Plan Assessment: * Probable acute ischemic stroke manifesting with significant receptive > expressive aphasia, and left hemiparesis. Patient is status post TPA. Her hemiparesis seems to have remarkably improved/resolved, but still has significant aphasia. Her current NIH stroke scale although limited because of patient's noncooperation and aphasia is 7. * Hypertension Plan: * Patient has received TPA in the ER. Patient's left hemiparesis has mostly resolved. She still has significant receptive aphasia. * At this point we will continue to observe closely. Any change in physical or neurological examination should prompt urgent CT head. * No antiplatelets or anticoagulants for 24 hours. * SCDs for DVT prophylaxis. * Permissive hypertension but keep blood pressure less than 180/100. * 2-D echo with bubble study * Lipid panel * Hemoglobin A1c * Telemetry monitoring rule out arrhythmia. * Neuro checks as per post-TPA protocol. * Discussed with patient's nursing staff in detail. Thank you for the consult. Time with Patient: Greater than 30
--- NOTE | 2022-03-29 11:48 | P.HPIM ---
History of Present Illness This is a pleasant 86 years old female with past medical history of GERD and hypothyroidism, hip and difficulty history of C. diff, spinal stenosis and sciatica, vertigo Patient presents yesterday because of periods of confusion, right gaze deviation and left sided facial droop and left leg weakness. Also there was some mention of aphasia and dysarthria. She received TPA in the emergency room This morning she was lying in bed does not look in distress, she is awake and alert, she denies weakness or numbness or facial droop however it looks like she has some expressive aphasia which bothers her this morning She denies chest pain or abdominal pain. No headache. No numbness. No blurred vision. No diarrhea or vomiting. No urinary complaints. No fever Patient Vitas looks stable, oxygen saturation is 91% on room air. She is afebrile. Labs reviewed, CBC is normal, INR 1.0, Sodium is low 124 and 127, rest of BMP and liver enzymes and troponins are negative. CT of the brain: No acute process. CTA of the head and neck: Negative study for both the neck and the brain Chest x-ray: No acute process Pelvic x-ray: Negative exam with no fracture EKG showing normal sinus rhythm at [address]-T changes Patient received Review of Systems CONSTITUTIONAL: No fever, no malaise, no fatigue. HEENT: No recent visual problems or hearing problems. Denied any sore throat. CARDIOVASCULAR: No orthopnea, PND, no palpitations, no syncope. PULMONARY: No shortness of breath, no cough, no hemoptysis. GASTROINTESTINAL: No diarrhea, no nausea, no vomiting, no abdominal pain. Normoactive bowel sounds. NEUROLOGICAL: No headaches, no weakness, no numbness. HEMATOLOGICAL: Denies any bleeding or petechiae. GENITOURINARY: Denies any burning micturition, frequency, or urgency. MUSCULOSKELETAL/RHEUMATOLOGICAL: Denies any joint pain, swelling, or any muscle pain. ENDOCRINE: Denies any polyuria or polydipsia. Past Medical History Past Medical History: Cancer, Eye Disorder, GERD/Reflux, Hearing Disorder / Deafness, Thyroid Disorder Additional Past Medical History / Comment(s): VERTIGO. HX ARRYTHMIA, NO TX NEEDED. ALLERGIES. CA FACE. DRY EYES. EXCESSIVE DIARRHEA for several months & increasing recently, HX C-DIFF. Sciatica, spinal stenosis History of Any Multi-Drug Resistant Organisms: C-DIFF Date of last positivie culture/infection: 2016 MDRO Source:: stool Past Surgical History: Appendectomy, Hernia Repair, Orthopedic Surgery, Tubal Ligation Additional Past Surgical History / Comment(s): CHELA Shoulder. Cataracts. INGUINAL HERNIA REPAIR. COLONOSCOPY. Past Anesthesia/Blood Transfusion Reactions: No Reported Reaction Smoking Status: Never smoker - Past Family History Mother Family Medical History: CVA/TIA Father Family Medical History: Myocardial Infarction ([place]) Medications and Allergies Home Medications Medication Instructions Recorded Confirmed Type Levothyroxine Sodium [Synthroid] 112 mcg PO DAILY 07/28/20 03/28/22 History Omeprazole 20 mg PO DAILY 03/28/22 03/28/22 History Allergies Allergy/AdvReac Type Severity Reaction Status Date / Time aspirin Allergy Rash/Hives Verified 03/10/21 09:04 codeine Allergy Rash/Hives Verified 03/10/21 09:04 lincomycin HCl Allergy Anaphylaxis Verified 03/10/21 09:04 [From Lincocin] lorazepam [From Ativan] Allergy passed out Verified 03/10/21 10:20 midazolam HCl [From Versed] Allergy Rapid Verified 03/10/21 09:04 Heart Rate naproxen [From Naprosyn] Allergy Anaphylaxis Verified 03/10/21 09:04 Penicillins Allergy Rash/Hives Verified 03/28/22 17:50 Sulfa (Sulfonamide Allergy Rash/Hives Verified 03/10/21 09:04 Antibiotics) Physical Exam Vitals: Vital Signs Temp Pulse Resp BP Pulse Ox FiO2 03/29/22 05:00 60 16 128/60 91 L 03/29/22 04:30 57 L 17 135/65 93 L 03/29/22 04:00 97.9 F 64 18 141/58 92 L 03/29/22 03:30 71 16 123/60 93 L 03/29/22 03:00 63 15 139/60 94 L 03/29/22 02:30 62 20 142/55 95 03/29/22 02:00 62 16 136/63 92 L 03/29/22 01:30 61 17 140/62 93 L 03/29/22 01:00 63 17 140/63 96 03/29/22 00:30 24 138/58 95 03/29/22 00:27 95 21 03/29/22 00:00 97.9 F 65 16 137/84 95 03/28/22 23:48 63 17 137/84 93 L 03/28/22 23:30 64 19 130/81 95 03/28/22 23:00 62 18 158/64 96 03/28/22 22:30 64 20 151/69 96 03/28/22 22:00 62 17 163/70 93 L 03/28/22 21:30 62 21 161/75 94 L 03/28/22 21:00 64 30 H 166/75 98 03/28/22 20:30 60 15 155/83 96 03/28/22 20:00 98.1 F 71 12 165/76 97 03/28/22 19:30 58 L 19 150/75 92 L 03/28/22 19:00 61 61 H 149/72 96 03/28/22 18:30 63 38 H 120/91 98 03/28/22 18:22 97.8 F 61 18 120/91 97 03/28/22 18:11 74 55 H 98 03/28/22 17:45 66 18 135/90 100 03/28/22 17:30 71 18 151/81 100 03/28/22 17:15 72 16 148/73 100 03/28/22 17:00 72 16 151/76 100 03/28/22 16:45 75 16 142/64 100 03/28/22 16:30 70 16 141/88 100 03/28/22 16:15 97.1 F L 68 16 137/97 100 Intake and Output 03/28/22 03/28/22 03/29/22 14:59 22:59 06:59 Intake Total 275 175 Output Total 3035 410 Balance -2760 -235 Intake: IV 275 175 Sodium Chloride 0.9% 1, 200 000 ml @ 100 mls/hr IV . Q10H [facility] Rx#:[id number] Sodium Chloride 3%( 75 175 Hypertonic) 500 ml @ 25 mls/hr IV .Q20H [facility] Rx#: [id number] Output: Urine 2035 410 Uretheral (Mchugh) 1000 Post Void Residual 1000 Other: Voiding Method Indwelling Catheter Indwelling Catheter Weight 63.5 kg 64.5 kg GENERAL: The patient is alert and oriented x3, not in any acute distress. Well developed, well nourished. HEENT: Pupils are round and equally reacting to light. EOMI. No scleral icterus. No conjunctival pallor. Normocephalic, atraumatic. No pharyngeal erythema. No thyromegaly. CARDIOVASCULAR: S1 and S2 present. No murmurs, rubs, or gallops. PULMONARY: Chest is clear to auscultation, no wheezing or crackles. ABDOMEN: Soft, nontender, nondistended, normoactive bowel sounds. No palpable organomegaly. MUSCULOSKELETAL: No joint swelling or deformity. EXTREMITIES: No cyanosis, clubbing, or pedal edema. -NEUROLOGICAL: Patient has some expressive aphasia, she has difficulty finishing her story or filling the names of her doctor's for example. Other than that her cranial nerves are grossly intact. Sensation is intact. Motor is symmetric on both sides and 5/5. Meningeal signs are absent SKIN: No rashes. No petechiae Results CBC & Chem 7: 03/29/22 07:53 03/29/22 07:53 Labs: Abnormal Lab Results - Last 24 Hours (Table) 03/28/22 03/28/22 03/28/22 Range/Units 16:04 16:28 18:11 Sodium 124 L (137-145) mmol/L Chloride 91 L (98-107) mmol/L Carbon Dioxide 20 L (22-30) mmol/L Glucose 111 H (74-99) mg/dL POC Glucose (mg/dL) 121 H (70-110) mg/dL Ur Specific Benton 1.037 H (1.001-1.035) Urine Ketones 1+ H (Negative) Urine Blood Moderate H (Negative) Urine RBC 31 H (0-5) /hpf 03/28/22 03/28/22 03/29/22 Range/Units 20:02 22:22 01:17 Sodium 127 L 127 L 127 L (137-145) mmol/L Chloride (98-107) mmol/L Carbon Dioxide (22-30) mmol/L Glucose (74-99) mg/dL POC Glucose (mg/dL) (70-110) mg/dL Ur Specific Benton (1.001-1.035) Urine Ketones (Negative) Urine Blood (Negative) Urine RBC (0-5) /hpf Assessment and Plan Assessment: Acute stroke status post TPA Expressive aphasia secondary to both Mild hyponatremia History of GERD Hypothyroidism History of C. diff History of vertigo History of spinal stenosis and sciatica Plan: This is a pleasant 86 years old female who presents with acute stroke, status post alteplase Follow-up repeat CT of the brain Neurology and intensive care consult Labs and medication were reviewed.. Continue same treatment. Continue with symptomatic treatment. Resume home medication. Monitor lytes and vitals. DVT and GI prophylaxis. Further recommendations depends on the clinical course of the patient DVT prophylaxis: Subcutaneous heparin GI Prophylaxis: Pepcid PT/OT: Pending Prognosis is guarded
[2022-03-29 12:29] LABS: T4, Free (Free Thyroxine) 1.54 ng/dL (0.78-2.19)
--- NOTE | 2022-03-29 17:10 | CA ---
Transthoracic Echo Report Name: Ting Vásquez Age: 86 Gender: F : 1935 Exam Date: 03/29/2022 10:43 Exam Location: [facility] Ht (in): 65 Wt (lb): 145 Ordering Physician: Digna Alcala MD Attending/Referring Phys: Sales Service Executive Viki Rooney RDCS Procedure CPT: Indications: stroke Cardiac Hx: Technical Quality: Good Contrast 1: Total Dose (mL): Contrast 2: Total Dose (mL): MEASUREMENTS (Male / Female) Normal Values 2D ECHO LV Diastolic Diameter PLAX 3.8 cm 4.2 - 5.9 / 3.9 - 5.3 cm LV Systolic Diameter PLAX 2.4 cm IVS Diastolic Thickness 1.0 cm 0.6 - 1.0 / 0.6 - 0.9 cm LVPW Diastolic Thickness 1.2 cm 0.6 - 1.0 / 0.6 - 0.9 cm LV Relative Wall Thickness 0.6 RV Internal Dim ED PLAX 3.0 cm LA Systolic Diameter LX 3.8 cm 3.0 - 4.0 / 2.7 - 3.8 cm LA Volume 62.4 cm??? 18 - 58 / 22 - 52 cm??? M-MODE Aortic Root Diameter MM 3.2 cm LA Systolic Diameter MM 3.9 cm LA Ao Ratio MM 1.2 MV E Point Septal Separation 0.9 cm AV Cusp Separation MM 2.1 cm DOPPLER MV Area PHT 3.2 cm??? Mitral E Point Velocity 76.8 cm/s Mitral A Point Velocity 86.5 cm/s Mitral E to A Ratio 0.9 MV Deceleration Time 236.2 ms MV E' Velocity 6.3 cm/s Mitral E to MV E' Ratio 12.2 TR Peak Velocity 210.1 cm/s TR Peak Gradient 17.7 mmHg Right Ventricular Systolic Press 22.7 mmHg FINDINGS Left Ventricle Normal left ventricular size, wall thickness, systolic function with no obvious regional wall motion abnormalities. Left ventricular ejection fraction is estimated at 50-55 %. Right Ventricle The right ventricle is normal in size and function. Right Atrium The right atrium is normal in size. Left Atrium The left atrium is normal in size. Mitral Valve Structurally normal mitral valve without significant stenosis or prolapse. There is mild mitral regurgitation. Aortic Valve Structurally normal aortic valve without significant sclerosis or stenosis. There is no aortic regurgitation. Tricuspid Valve Structurally normal tricuspid valve without significant stenosis. Pulmonary artery systolic pressure is normal. Pulmonic Valve Structurally normal pulmonic valve without significant stenosis. There is no pulmonic regurgitation. Pericardium Normal pericardium without effusion. Aorta Normal aortic root dimension. CONCLUSIONS Normal LV function Mild tricuspid regurgitation Previewed by: Dr. Christiano Her MD (Electronically Signed) Final Date: 29 March 2022 17:09
--- NOTE | 2022-03-29 17:34 | CT ---
"EXAMINATION TYPE: CT brain wo con DATE OF EXAM: 03/29/2022 COMPARISON: 03/28/2022 INDICATION: 24 hours post TPA DLP: 1141.4 mGycm, Automated exposure control for dose reduction was used. CONTRAST: None CT of the brain is performed utilizing 3 mm thick sections through the posterior fossa and 3 mm thick sections through the remaining calvarium. Study is performed within 24 hours of arrival to the hosp [place]. Multiple small collections of hyperintensity are present compatible with small petechial hemorrhages small intracranial hemorrhages. This includes a 0.4 cm subcortical petechial hemorrhage right centrum semiovale, series 201 image 49. A small hemorrhage in the midline may be subdural or subarachnoid he morrhage measuring 1.8 x 1.0 cm. Series 201 image 43 a right thalamic hemorrhage measures 1.1 cm. A t iny petechial hemorrhages in the left cruz radiata measuring 0.7 cm, series [address] hemorrhage measures 1.5 x 0.9 cm in the posterior left middle cranial fossa appears to be an intra parenchymal hemorrhage. No mass lesion is evident. There is hypodensity within the subcortical white matter of the trilobar regions bilaterally. This wa s present previously. Subacute or chronic subcortical ischemia should be considered. Ventricles and sulci are appropriate for the patient age. No significant effacement of ventricles or sulci. No significant edema adjacent to the hemorrhage at this time. Quadrigeminal plate and ambient cisterns are widely patent. No midline shift is evident. No hydrocephalus or temporal horn dilatatio n is evident. Paranasal sinuses and mastoid air cells within the [id number] are clear. IMPRESSIONS: 1. Multiple intraparenchymal small hemorrhages discussed above. The largest is in the left middle c ranial fossa with additional hemorrhages in the right thalamus and just left of the falx near the ve rtex. Report was called to the ICU by Dr. Byers by telephone at the time of interpretation. A Red level critical message alert has been initiated for Wally Wynn MD~[id number] via the [employer] | Critical Results System on 03/29/2022 5:30 PM. This message alert has been sent to Wally Wynn MD~[id number] via the preferences provided by the clinician for the receipt of Radiology Critical Findings . Message ID [id number]."
[2022-03-29] MEDS ORDERED: levETIRAcetam IV 1,000 MG in SALINE 1 100ML.BAG IVPB STA (18:43)
--- NOTE | 2022-03-29 18:43 | P.PN ---
Subjective Progress Note Date: 03/29/22 Patient was seen for a follow-up. Patient has remarkably improved. Patient denies any headache, no dizziness. Patient states that she has been up with help. Her speech and language functions has remarkably improved. No aphasia. Offers no complaints. Patient is very hard of hearing. Objective - Vital Signs Vital signs: Vital Signs Temp 98 F 03/29/22 12:00 Pulse 76 03/29/22 12:00 Resp 18 03/29/22 12:00 BP 123/66 03/29/22 12:00 Pulse Ox 95 03/29/22 12:00 FiO2 21 03/29/22 00:27 Intake & Output 03/28/22 03/29/22 03/29/22 18:59 06:59 18:59 Intake Total 100 375 275 Output Total 3495 410 Balance 100 -3120 -135 Weight 63.5 kg 64.5 kg Intake: IV 100 375 75 Sodium Chloride 0.9% 1, 100 100 000 ml @ 100 mls/hr IV . Q10H STA Rx#:[id number] Sodium Chloride 3%( 275 75 Hypertonic) 500 ml @ 25 mls/hr IV .Q20H CLEM Rx#: [id number] Oral 200 Output: Urine 2495 410 Uretheral (Mchugh) 1000 Post Void Residual 1000 Other: Voiding Method Indwelling Catheter Indwelling Catheter - Exam Patient is an elderly female, very pleasant, in no acute distress. H er aphasia has completely resolved. Patient is laying comfortably in the bed. Patient is alert awake oriented to time place and person. Speech and language functions are normal. Patient can name and repeat very well. I did not notice any paraphasic errors with her conversation. Attention, concentration and fund of knowledge is adequate. On cranial nerve examination, pupils are equal, round and reacting to light, visual johnson are full on confrontation, with no neglect on double simultaneous stimulation. Her extraocular muscles are intact with no nystagmus. Patient has left facial weakness, only on active testing. Her tongue protrudes to the midline. Palatal elevation and sensation normal, hearing is severely decreased which is baseline and shoulder shrug normal, facial sensation normal. Shoulder shrug normal. On muscle strength testing, there is no pronator drift and the strength is normal in arms and legs distally and proximally, except right deltoid which is weak, which patient states is chronic. Sensory to touch is equal with no neglect on double simultaneous stimulation. Cerebellar function showed no ataxia for [id number] testing. Tone and bulk of muscles normal. Gait deferred. On general examination, there is no carotid bruit or murmur, S1-S2 audible. A bdomen is soft nontender. Chest is clear. Peripheral pulses are present. No edema. - Labs CBC & Chem 7: 03/29/22 07:53 03/29/22 07:53 Labs: Abnormal Lab Results - Last 24 Hours (Table) 03/28/22 03/28/22 03/28/22 Range/Units 16:04 16:28 18:11 Sodium 124 L (137-145) mmol/L Chloride 91 L (98-107) mmol/L Carbon Dioxide 20 L (22-30) mmol/L Glucose 111 H (74-99) mg/dL POC Glucose (mg/dL) 121 H (70-110) mg/dL HDL Cholesterol (40.00-60.00) mg/dL TSH (0.465-4.680) mIU/L Ur Specific [place] 1.037 H (1.001-1.035) Urine Ketones 1+ H (Negative) Urine Blood Moderate H (Negative) Urine RBC 31 H (0-5) /hpf 03/28/22 03/28/22 03/29/22 Range/Units 20:02 22:22 01:17 Sodium 127 L 127 L (137-145) mmol/L Chloride (98-107) mmol/L Carbon Dioxide (22-30) mmol/L Glucose (74-99) mg/dL POC Glucose (mg/dL) (70-110) mg/dL HDL Cholesterol 61.90 H (40.00-60.00) mg/dL TSH (0.465-4.680) mIU/L Ur Specific [place] (1.001-1.035) Urine Ketones (Negative) Urine Blood (Negative) Urine RBC (0-5) /hpf 03/29/22 03/29/22 03/29/22 Range/Units 01:17 06:53 07:53 Sodium 127 L 131 L (137-145) mmol/L Chloride (98-107) mmol/L Carbon Dioxide 21 L (22-30) mmol/L Glucose 154 H (74-99) mg/dL POC Glucose (mg/dL) 117 H (70-110) mg/dL HDL Cholesterol (40.00-60.00) mg/dL TSH (0.465-4.680) mIU/L Ur Specific [place] (1.001-1.035) Urine Ketones (Negative) Urine Blood (Negative) Urine RBC (0-5) /hpf 03/29/22 Range/Units 07:53 Sodium (137-145) mmol/L Chloride (98-107) mmol/L Carbon Dioxide (22-30) mmol/L Glucose (74-99) mg/dL POC Glucose (mg/dL) (70-110) mg/dL HDL Cholesterol (40.00-60.00) mg/dL TSH 0.178 L (0.465-4.680) mIU/L Ur Specific [place] (1.001-1.035) Urine Ketones (Negative) Urine Blood (Negative) Urine RBC (0-5) /hpf Assessment and Plan Assessment: * Probable acute ischemic stroke manifesting with significant receptive > expressive aphasia, and left hemiparesis. Patient is status post TPA. Her stroke symptoms have mostly resolved except for residual left facial weakness. Her NIH stroke scale has decreased from 7 yesterday to 1 as of today. * Hypertension Plan: * Patient's aphasia and hemiparesis has completely resolved. Patient has mild left facial weakness noticed. She has no symptoms like headache or dizziness. * No antiplatelets or anticoagulants for 24 hours post-TPA. * Patient to undergo [address] head later today, will follow. * Keep blood pressure less than 180/100 at all time. Avoid hyptension. * 2-D echo revealed normal left ventricular function. Left-ventricular ejection fraction is estimated 50-55%. Mild TR. Left atrial size is normal. Apparently they did not perform bubble study. * Lipid panel with cholesterol 179, LDL 101, HDL 61 and triglycerides 78. Continue Lipitor 40 mg daily. * Hemoglobin A1c pending * MRI brain evaluate for an acute stroke. * Telemetry monitoring rule out arrhythmia. * Neuro checks as per post-TPA protocol. * SCDs for DVT prophylaxis. * Discussed with patient's nursing staff in detail. Addendum 6:10 PM: Patient underwent 24 hours post-TPA CT head. It revealed multiple intraparenchymal small hemorrhages. The largest is in the left middle cranial fossa measuring 1.5 x 0.9 cm, with additional hemorrhages in the right thalamus, just left of the falx near the vertex. I personally reviewed the computed tomography scan of the head and agree with the findings. I discussed the computed tomography scan of the head with patient's son Mr. Sim, as well as patient independently. Patient at present denies any headache, denies dizziness. No new focal symptoms. Patient clinically stable. Her speech is completely clear, with clear mentation. After discussing in detail with each of them, both agreed to be transferred to higher level of care for neurosurgical consultation and close neurosurgical monitoring. Her blood pressure has been less than 145 systolic throughout the admission. Continue to stay off antiplatelets, anticoagulants. We will start Keppra 1000 mg loading dose followed by 500 mg twice a day empirically for seizure prophylaxis. Patient be transferred to higher level of care. Time with Patient: Greater than 30
[2022-03-29 20:05] LABS: Glucose,Whole Blood 116 mg/dL (70-110)
[2022-03-29] MEDS ORDERED: ATORVASTATIN 40 MG TAB PO SCH (21:00)
[2022-03-29] MEDS ORDERED: hydrALAZINE HCL 25 MG TAB PO PRN (21:09)
[2022-03-29] MEDS ORDERED: ACETAMINOPHEN TAB 325 MG TAB PO PRN (22:45)
[2022-03-30] MEDS ORDERED: SODIUM CHLORIDE 3%(HYPERTONIC) 500 ML IV SCH (01:00)
[2022-03-30] MEDS ORDERED: BUTALB/APAP/CAFF 50-325-40MG TAB PO PRN (01:20)
--- NOTE | 2022-03-30 02:35 | CT ---
EXAM: CT Head Without Intravenous Contrast CLINICAL HISTORY: ITS.REASON CT Reason: rpt worsening headache TECHNIQUE: Axial computed tomography images of the head/brain without intravenous contrast. CTDI is 49.2 mGy and DLP is 1129.4 mGy-cm. This CT exam was performed using one or more of the following dose reduction techniques: automated exposure control, adjustment of the mA and/or kV according to patient size, and/or use of iterative reconstruction technique. COMPARISON: 03.29.22 FINDINGS: Multifocal hemorrhages are again seen not significantly changed. No herniation. IMPRESSION: Multifocal hemorrhages are again seen not significantly changed. No herniation.
[2022-03-30 05:00] VITALS: TEMP 97.6
[2022-03-30 05:33] VITALS: BP 153/73; PULSE 55; RESP 11
--- NOTE | 2022-03-30 22:59 | P.DS ---
Providers Date of admission: 03/28/22 17:25 Attending physician: Wally Wynn Consults: 03/28/22 17:24 Consult Physician Routine Consulting Provider: Digna Alcala Consult Reason/Comments: cva, tpa, hyponatremia Do you want consulting provider notified?: Already Contacted Consult Physician Routine Consulting Provider: Lilo Torres Consult Reason/Comments: cva, tpa Do you want consulting provider notified?: Already Contacted Primary care physician: Emma Solis [facility] Course: Patients remain stable with expressive aphasia which is improved from admission. I discussed with our neuro lead loader from [facility] Dr. Hall, he advised that this is asymptomatic very bleed and recommended to keep monitoring and repeat imaging in the morning. However later on I talked to the physician on-call for [facility], [place] who agreed to transfer the patient overnight Please refer to H&P for more details Patient Condition at Discharge: Serious Plan - Discharge Summary New Discharge Prescriptions: No Action Levothyroxine Sodium [Synthroid] 112 mcg PO DAILY Omeprazole 20 mg PO DAILY Discharge Medication List Levothyroxine Sodium [Synthroid] 112 mcg PO DAILY 07/28/20 [History] Omeprazole 20 mg PO DAILY 03/28/22 [History] Follow up Appointment(s)/Referral(s): Emma Solis MD [Primary Care Provider] - 1-2 days Discharge Disposition: DC/TRNS IP HOSP W/PLND IP READ
== END 2022-03-30 06:47 | disposition short-term general hospital, planned readmission (82) | DRG 62 ==
LOC: EC 15:59 → 2SICU 17:25
PROVIDERS: ADMIT Psychiatry & Neurology Neurology; ATTEND Hospitalist
DX: I63.9 Cerebral infarction, unspecified (principal); G81.94 Hemiplegia, unspecified affecting left nondominant side; E87.1 Hypo-osmolality and hyponatremia; R47.01 Aphasia; Z20.822 Contact with and (suspected) exposure to COVID-19; H51.8 Other specified disorders of binocular movement; I08.1 Rheumatic disorders of both mitral and tricuspid valves; H91.90 Unspecified hearing loss, unspecified ear; M54.30 Sciatica, unspecified side; K21.9 Gastro-esophageal reflux disease without esophagitis; I10 Essential (primary) hypertension; R29.709 NIHSS score 9; I49.1 Atrial premature depolarization; E03.9 Hypothyroidism, unspecified; R29.810 Facial weakness; W19.XXXA Unspecified fall, initial encounter; Z79.890 Hormone replacement therapy; Z82.3 Family history of stroke; Z82.49 Family history of ischemic heart disease and other diseases of the circulatory system; Z88.0 Allergy status to penicillin; Z88.1 Allergy status to other antibiotic agents; Z88.6 Allergy status to analgesic agent; Z88.5 Allergy status to narcotic agent; R29.707 NIHSS score 7; Z88.2 Allergy status to sulfonamides; Z87.19 Personal history of other diseases of the digestive system; Z98.49 Cataract extraction status, unspecified eye; Z86.79 Personal history of other diseases of the circulatory system; R47.1 Dysarthria and anarthria
CPT/HCPCS: 36415; 37195; 70450; 70496; 70498; 71045; 72170; 80048; 80053; 80061; 80306; 81001; 83735; 84295; 84439; 84443; 84484; 85025; 85384; 85610; 85730; 87635; 93005; 93306; 99291

== ENCOUNTER 2022-04-05 00:35 | Emergency (ER) | payer MEDICARE ==
[2022-04-05 00:45] VITALS: TEMP 97.9
[2022-04-05] MEDS ORDERED: SODIUM CHLORIDE 0.9% 1,000 ML IV STA (00:46)
[2022-04-05] MEDS ORDERED: SODIUM CHLORIDE 0.9% 500 ML 500 ML IV STA (00:46)
[2022-04-05] MEDS ORDERED: ONDANSETRON 4 MG/2 ML VIAL IVP STA (00:51)
--- NOTE | 2022-04-05 00:54 | ED ---
Weakness HPI - General Chief complaint: Weakness Stated complaint: Weakness Time Seen by Provider: 04/05/22 00:38 Source: EMS, RN notes reviewed, old records reviewed Mode of arrival: EMS Limitations: no limitations - History of Present Illness Initial comments: This is an 86-year-old female presents today for evaluation. She presents today for evaluation of fever complaints weakness nausea and chills bodyaches and pains. Feels like she has. States her body feels stiff. Patient is alert,. Recent medical history including stroke stroke with did have also brain bleeding. Patient states occasional headaches but no current headache. Speech is improving symptoms are improving a patient states she's been feeling well. Denying at home fevers. No cough or congestion. No diarrhea MD Complaint: generalized weakness, tingling, lack of energy -: hour(s) Location: generalized Severity: mild Severity scale (1-10): 2 Consistency: constant Improves with: none Worsens with: none Context: recent illness, history of similar Associated Symptoms: headaches, loss of appetite, nausea/vomiting - Related Data Home Medications Medication Instructions Recorded Confirmed Levothyroxine Sodium [Synthroid] 112 mcg PO DAILY 07/28/20 03/28/22 Omeprazole 20 mg PO DAILY 03/28/22 03/28/22 Allergies Allergy/AdvReac Type Severity Reaction Status Date / Time aspirin Allergy Rash/Hives Verified 03/10/21 09:04 codeine Allergy Rash/Hives Verified 03/10/21 09:04 lincomycin HCl Allergy Anaphylaxis Verified 03/10/21 09:04 [From Lincocin] lorazepam [From Ativan] Allergy passed out Verified 03/10/21 10:20 midazolam HCl [From Versed] Allergy Rapid Verified 03/10/21 09:04 Heart Rate naproxen [From Naprosyn] Allergy Anaphylaxis Verified 03/10/21 09:04 Penicillins Allergy Rash/Hives Verified 03/28/22 17:50 Sulfa (Sulfonamide Allergy Rash/Hives Verified 03/10/21 09:04 Antibiotics) Review of Systems ROS Statement: Those systems with pertinent positive or pertinent negative responses have been documented in the HPI. ROS Other: All systems not noted in ROS Statement are negative. Past Medical History Past Medical History: Cancer, Eye Disorder, GERD/Reflux, Hearing Disorder / Deafness, Thyroid Disorder Additional Past Medical History / Comment(s): VERTIGO. HX ARRYTHMIA, NO TX NEEDED. ALLERGIES. CA FACE. DRY EYES. EXCESSIVE DIARRHEA for several months & increasing recently, HX C-DIFF. Sciatica, spinal stenosis History of Any Multi-Drug Resistant Organisms: C-DIFF Date of last positivie culture/infection: 2016 MDRO Source:: stool Past Surgical History: Appendectomy, Hernia Repair, Orthopedic Surgery, Tubal Ligation Additional Past Surgical History / Comment(s): CHELA Shoulder. Cataracts. INGUINAL HERNIA REPAIR. COLONOSCOPY. Past Anesthesia/Blood Transfusion Reactions: No Reported Reaction Past Psychological History: Anxiety Smoking Status: Never smoker - Past Family History Mother Family Medical History: CVA/TIA Father Family Medical History: Myocardial Infarction ([place]) General Exam Limitations: no limitations General appearance: alert, in no apparent distress Head exam: Present: atraumatic, normocephalic, normal inspection Eye exam: Present: normal appearance, PERRL, EOMI. Absent: scleral icterus, conjunctival injection, periorbital swelling ENT exam: Present: normal exam, mucous membranes moist Neck exam: Present: normal inspection. Absent: tenderness, meningismus, lymphadenopathy Respiratory exam: Present: normal lung sounds bilaterally. Absent: respiratory distress, wheezes, rales, rhonchi, stridor Cardiovascular Exam: Present: regular rate, normal rhythm, normal heart sounds. Absent: systolic murmur, diastolic murmur, rubs, gallop, clicks GI/Abdominal exam: Present: soft, normal bowel sounds. Absent: distended, tenderness, guarding, rebound, rigid Extremities exam: Present: normal inspection, full ROM, normal capillary refill. Absent: tenderness, pedal edema, joint swelling, calf tenderness Back exam: Present: normal inspection Neurological exam: Present: alert, oriented X3, CN II-XII intact Psychiatric exam: Present: normal affect, normal mood Skin exam: Present: warm, dry, intact, normal color. Absent: rash Course Vital Signs 04/05/22 04/05/22 04/05/22 00:42 01:23 02:33 Temperature 97.9 F Pulse Rate 59 L 55 L 59 L Respiratory 16 16 18 Rate Blood Pressure 162/80 131/63 155/70 O2 Sat by Pulse 98 97 98 Oximetry - Reevaluation(s) Reevaluation #1: 04/05/22 00:54 Medical records reviewed Reevaluation #2: 04/05/22 03:50 Patient continues to feel improved here in the ER Reevaluation #3: 04/05/22 03:50 patient and family informed of results questions are answered EKG Findings - EKG Comments: EKG Findings:: EKG shows sinus bradycardia 58 OK 173 QRS 87 QTc 407 Medical Decision Making - Medical Decision Making 86 female to the emergency department with chills and hot flashes. Patient recently went from CVA converted to hemorrhagic after TPA. All testing is normal here in the ER brain scan continues improved patient feels well can be discharged home - Lab Data Result diagrams: 04/05/22 01:12 04/05/22 01:12 Lab Results 04/05/22 04/05/22 04/05/22 Range/Units 01:12 01:12 01:12 WBC 6.6 (3.8-10.6) k/uL RBC 4.27 (3.80-5.40) m/uL Hgb 13.0 (11.4-16.0) gm/dL Hct 38.9 (34.0-46.0) % MCV 90.9 (80.0-100.0) fL MCH 30.4 (25.0-35.0) pg MCHC 33.4 (31.0-37.0) g/dL RDW 12.2 (11.5-15.5) % Plt Count 333 (150-450) k/uL MPV 7.5 Neutrophils % 57 % Lymphocytes % 31 % Monocytes % 6 % Eosinophils % 2 % Basophils % 2 % Neutrophils # 3.7 (1.3-7.7) k/uL Lymphocytes # 2.0 (1.0-4.8) k/uL Monocytes # 0.4 (0-1.0) k/uL Eosinophils # 0.2 (0-0.7) k/uL Basophils # 0.1 (0-0.2) k/uL PT 11.2 (9.0-12.0) sec INR 1.0 (<1.2) APTT 27.3 (22.0-30.0) sec Sodium 130 L (137-145) mmol/L Potassium 3.9 (3.5-5.1) mmol/L Chloride 100 (98-107) mmol/L Carbon Dioxide 23 (22-30) mmol/L Anion Gap 7 mmol/L BUN 18 H (7-17) mg/dL Creatinine 0.58 (0.52-1.04) mg/dL Est GFR (CKD-EPI)AfAm >90 (>60 ml/min/1.73 sqM) Est GFR (CKD-EPI)NonAf 83 (>60 ml/min/1.73 sqM) Glucose 110 H (74-99) mg/dL Plasma Lactic Acid Juan J (0.7-2.0) mmol/L Calcium 9.1 (8.4-10.2) mg/dL Phosphorus 3.3 (2.5-4.5) mg/dL Magnesium 1.8 (1.6-2.3) mg/dL Total Bilirubin 0.4 (0.2-1.3) mg/dL AST 35 (14-36) U/L ALT 26 (4-34) U/L Alkaline Phosphatase 90 (38-126) U/L Troponin I (0.000-0.034) ng/mL NT-Pro-B Natriuret Pep pg/mL Total Protein 6.6 (6.3-8.2) g/dL Albumin 3.9 (3.5-5.0) g/dL Urine Color Urine Appearance (Clear) Urine pH (5.0-8.0) Ur Specific Spr[place] (1.001-1.035) Urine Protein (Negative) Urine Glucose (UA) (Negative) Urine Ketones (Negative) Urine Blood (Negative) Urine Nitrite (Negative) Urine Bilirubin (Negative) Urine Urobilinogen (<2.0) mg/dL Ur Leukocyte Esterase (Negative) Urine RBC (0-5) /hpf Urine WBC (0-5) /hpf Urine Bacteria (None) /hpf Urine Mucus (None) /hpf 04/05/22 04/05/22 04/05/22 Range/Units 01:12 01:12 01:12 WBC (3.8-10.6) k/uL RBC (3.80-5.40) m/uL Hgb (11.4-16.0) gm/dL Hct (34.0-46.0) % MCV (80.0-100.0) fL MCH (25.0-35.0) pg MCHC (31.0-37.0) g/dL RDW (11.5-15.5) % Plt Count (150-450) k/uL MPV Neutrophils % % Lymphocytes % % Monocytes % % Eosinophils % % Basophils % % Neutrophils # (1.3-7.7) k/uL Lymphocytes # (1.0-4.8) k/uL Monocytes # (0-1.0) k/uL Eosinophils # (0-0.7) k/uL Basophils # (0-0.2) k/uL PT (9.0-12.0) sec INR (<1.2) APTT (22.0-30.0) sec Sodium (137-145) mmol/L Potassium (3.5-5.1) mmol/L Chloride (98-107) mmol/L Carbon Dioxide (22-30) mmol/L Anion Gap mmol/L BUN (7-17) mg/dL Creatinine (0.52-1.04) mg/dL Est GFR (CKD-EPI)AfAm (>60 ml/min/1.73 sqM) Est GFR (CKD-EPI)NonAf (>60 ml/min/1.73 sqM) Glucose (74-99) mg/dL Plasma Lactic Acid Juan J 1.0 (0.7-2.0) mmol/L Calcium (8.4-10.2) mg/dL Phosphorus (2.5-4.5) mg/dL Magnesium (1.6-2.3) mg/dL Total Bilirubin (0.2-1.3) mg/dL AST (14-36) U/L ALT (4-34) U/L Alkaline Phosphatase (38-126) U/L Troponin I <0.012 (0.000-0.034) ng/mL NT-Pro-B Natriuret Pep 92 pg/mL Total Protein (6.3-8.2) g/dL Albumin (3.5-5.0) g/dL Urine Color Urine Appearance (Clear) Urine pH (5.0-8.0) Ur Specific Spr[place] (1.001-1.035) Urine Protein (Negative) Urine Glucose (UA) (Negative) Urine Ketones (Negative) Urine Blood (Negative) Urine Nitrite (Negative) Urine Bilirubin (Negative) Urine Urobilinogen (<2.0) mg/dL Ur Leukocyte Esterase (Negative) Urine RBC (0-5) /hpf Urine WBC (0-5) /hpf Urine Bacteria (None) /hpf Urine Mucus (None) /hpf 04/05/22 Range/Units 03:10 WBC (3.8-10.6) k/uL RBC (3.80-5.40) m/uL Hgb (11.4-16.0) gm/dL Hct (34.0-46.0) % MCV (80.0-100.0) fL MCH (25.0-35.0) pg MCHC (31.0-37.0) g/dL RDW (11.5-15.5) % Plt Count (150-450) k/uL MPV Neutrophils % % Lymphocytes % % Monocytes % % Eosinophils % % Basophils % % Neutrophils # (1.3-7.7) k/uL Lymphocytes # (1.0-4.8) k/uL Monocytes # (0-1.0) k/uL Eosinophils # (0-0.7) k/uL Basophils # (0-0.2) k/uL PT (9.0-12.0) sec INR (<1.2) APTT (22.0-30.0) sec Sodium (137-145) mmol/L Potassium (3.5-5.1) mmol/L Chloride (98-107) mmol/L Carbon Dioxide (22-30) mmol/L Anion Gap mmol/L BUN (7-17) mg/dL Creatinine (0.52-1.04) mg/dL Est GFR (CKD-EPI)AfAm (>60 ml/min/1.73 sqM) Est GFR (CKD-EPI)NonAf (>60 ml/min/1.73 sqM) Glucose (74-99) mg/dL Plasma Lactic Acid Juan J (0.7-2.0) mmol/L Calcium (8.4-10.2) mg/dL Phosphorus (2.5-4.5) mg/dL Magnesium (1.6-2.3) mg/dL Total Bilirubin (0.2-1.3) mg/dL AST (14-36) U/L ALT (4-34) U/L Alkaline Phosphatase (38-126) U/L Troponin I (0.000-0.034) ng/mL NT-Pro-B Natriuret Pep pg/mL Total Protein (6.3-8.2) g/dL Albumin (3.5-5.0) g/dL Urine Color Light Yellow Urine Appearance Clear (Clear) Urine pH 6.0 (5.0-8.0) Ur Specific Spr[place] 1.005 (1.001-1.035) Urine Protein Negative (Negative) Urine Glucose (UA) Negative (Negative) Urine Ketones Negative (Negative) Urine Blood Trace H (Negative) Urine Nitrite Negative (Negative) Urine Bilirubin Negative (Negative) Urine Urobilinogen <2.0 (<2.0) mg/dL Ur Leukocyte Esterase Moderate H (Negative) Urine RBC 1 (0-5) /hpf Urine WBC 6 H (0-5) /hpf Urine Bacteria Occasional H (None) /hpf Urine Mucus Rare H (None) /hpf - Radiology Data Radiology results: report reviewed (CT brain chest and pelvis x-ray are negative for acute disease), image reviewed Disposition Clinical Impression: Weakness Disposition: HOME SELF-CARE Condition: Good Instructions (If sedation given, give patient instructions): Weakness (ED) Is patient prescribed a controlled substance at d/c from ED?: No Referrals: Emma Solis MD [Primary Care Provider] - 1-2 days Time of Disposition: 03:50
[2022-04-05 01:26] LABS: Basophils # (A) 0.1 k/uL (0-0.2); Basophils % (A) 2 %; Eosinophils # (A) 0.2 k/uL (0-0.7); Eosinophils % (A) 2 %; HCT 38.9 % (34.0-46.0); Lymphocytes % (A) 31 %; MCH 30.4 pg (25.0-35.0); MCHC 33.4 g/dL (31.0-37.0); MCV 90.9 fL (80.0-100.0); Mean Platelet Volume 7.5; Monocytes # (A) 0.4 k/uL (0-1.0); Monocytes % (A) 6 %; Neutrophils # (A) 3.7 k/uL (1.3-7.7); Neutrophils % (A) 57 %; Platelet Count 333 k/uL (150-450); RBC 4.27 m/uL (3.80-5.40); RDW 12.2 % (11.5-15.5); WBC 6.6 k/uL (3.8-10.6)
[2022-04-05 01:38] LABS: ALT 26 U/L (4-34); AST 35 U/L (14-36); African American GFR (CKD) >90 (>60 ml/min/1.73 sqM); Albumin 3.9 g/dL (3.5-5.0); Alkaline Phosphatase 90 U/L (38-126); Anion Gap 7 mmol/L; Blood Urea Nitrogen 18 mg/dL (7-17); Calcium 9.1 mg/dL (8.4-10.2); Carbon Dioxide 23 mmol/L (22-30); Chloride 100 mmol/L (98-107); Glucose 110 mg/dL (74-99); Magnesium 1.8 mg/dL (1.6-2.3); Non-African American GFR(CKD) 83 (>60 ml/min/1.73 sqM); Phosphorus 3.3 mg/dL (2.5-4.5); Potassium 3.9 mmol/L (3.5-5.1); Sodium 130 mmol/L (137-145); Total Bilirubin 0.4 mg/dL (0.2-1.3); Total Protein 6.6 g/dL (6.3-8.2)
[2022-04-05 01:41] LABS: Partial Thromboplastin Time 27.3 sec (22.0-30.0); Prothrombin Time 11.2 sec (9.0-12.0)
--- NOTE | 2022-04-05 01:47 | CT ---
EXAM: CT Head Without Intravenous Contrast CLINICAL HISTORY: ITS.REASON CT Reason: varma TECHNIQUE: Axial computed tomography images of the head/brain without intravenous contrast. CTDI is 49.2 mGy and DLP is 1106.4 mGy-cm. This CT exam was performed using one or more of the following dose reduction techniques: automated exposure control, adjustment of the mA and/or kV according to patient size, and/or use of iterative reconstruction technique. COMPARISON: .. IMPRESSION: Evolution of multifocal hemorrhages, similar in distribution. Appears slightly less prominent compared to prior. Likely resolving process.
[2022-04-05 03:41] LABS: Appearance,Urine Clear (Clear); Bacteria,Urine Occasional /hpf; Bilirubin,Urine Negative (Negative); Blood,Urine Trace (Negative); Color,Urine Light Yellow; Glucose,Urine (UA) Negative (Negative); Ketones,Urine Negative (Negative); Leukocyte Esterase,Urine Moderate (Negative); Mucus,Urine Rare /hpf; Nitrite,Urine Negative (Negative); Protein,Urine Negative (Negative); RBC,Urine 1 /hpf (0-5); Specific Gravity,Urine 1.005 (1.001-1.035); Urobilinogen,Urine <2.0 mg/dL (<2.0); WBC,Urine 6 /hpf (0-5)
--- NOTE | 2022-04-05 03:41 | XR ---
EXAM: XR Chest, 1 View CLINICAL HISTORY: ITS.REASON XR Reason: pain TECHNIQUE: Frontal view of the chest. COMPARISON: XR Chest dated 03/28/2022 FINDINGS: Lungs: Stable biapical pleural-parenchymal thickening. Pleural space: Unremarkable. No pneumothorax. Heart: Unremarkable. No cardiomegaly. Mediastinum: Unremarkable. Bones/joints: Unremarkable. Other: 2 small opacities overlying the right upper quadrant may be gallstones, bowel contents or other etiology. IMPRESSION: No evidence of acute cardiopulmonary disease.
[2022-04-05 04:09] VITALS: BP 134/65; PULSE 54; RESP 16
--- NOTE | 2022-04-05 05:47 | XR ---
EXAM: XR Abdomen, 1 View CLINICAL HISTORY: ITS.REASON XR Reason: pain TECHNIQUE: Frontal supine view of the abdomen/pelvis. COMPARISON: None FINDINGS: Hardware: None. Abdomen: Nonobstructive bowel gas pattern. Moderate amount of stool. No free air. Bones: Mild degenerative changes of the hips. Soft tissues: Normal. Lower chest: Normal. IMPRESSION: Nonobstructive bowel gas pattern. Moderate amount of stool.
== END 2022-04-05 04:09 | disposition home or self-care (01) ==
LOC: EC 00:35
DX: R53.1 Weakness (principal); K21.9 Gastro-esophageal reflux disease without esophagitis; E07.9 Disorder of thyroid, unspecified; Z79.890 Hormone replacement therapy; Z79.899 Other long term (current) drug therapy
CPT/HCPCS: 36415; 93005; 83880; 80053; 83605; 83735; 84100; 84484; 85025; 85610; 85730; 81001; 71045; 74018; 70450; 99285; 96374; J2405

== ENCOUNTER → 2022-04-11 | Outpatient (CLI) | payer MEDICARE ==
--- NOTE | 2022-04-11 10:42 | CT ---
EXAMINATION TYPE: CT brain wo con CT DLP: 1047.1 mGycm, Automated exposure control for dose reduction was used. DATE OF EXAM: 04/11/2022 10:23 AM COMPARISON: Multiple CT brain's most recent 04/05/2022 and 03/29/2022. CLINICAL INDICATION:Female, 86 years old with history of Intercranial hemorrhage I62.9, intercranial hemorrhage TECHNIQUE: Brain: Multiple axial CT images of the brain were obtained without IV contrast. FINDINGS: Brain: Extra-axial spaces: No abnormal extra-axial fluid collections. Ventricular system: Within normal limits Cerebral parenchyma: Prior scattered intraparenchymal hemorrhages are no longer high density and now lower density which is consistent with continued evolution. No new intracranial hemorrhages identifie d. The devine-white junction is well differentiated. Scattered hypoattenuating areas are seen within th e white matter. Cerebellum: Unremarkable. Mass effect: No evidence of midline shift. Intracranial vasculature: unremarkable Soft tissues: Normal. Calvarium/osseous structures: No depressed skull fracture. Paranasal sinuses and mastoid air cells: Mild scattered paranasal sinus disease. Visualized orbits: Orbital contents are intact. IMPRESSION: 1. Continued evolution of scattered intraparenchymal hemorrhages no new hemorrhages identified. 2. Nonspecific white matter changes, likely secondary to chronic small vessel ischemic disease.
== END | disposition home or self-care (01) ==
LOC: RADCTMAIN 09:56
PROVIDERS: ATTEND Neurological Surgery
DX: I62.9 Nontraumatic intracranial hemorrhage, unspecified (principal); I67.82 Cerebral ischemia
CPT/HCPCS: 70450

== ENCOUNTER 2022-06-04 13:45 | Emergency (ER) | payer MEDICARE ==
--- NOTE | 2022-06-04 15:00 | CT ---
EXAMINATION TYPE: CT brain cspine wo con DATE OF EXAM: 06/04/2022 COMPARISON: CT brain 04/11/2022 HISTORY: Fall. Head injury. Hx of stroke CT DLP: 1286.9 mGycm Automated exposure control for dose reduction was used. There is cerebral cortical atrophy. There is no mass effect or midline shift. No sign of intracranial hemorrhage. The calvarium is intact. No evidence of a mass. The skull base is intact. There is kyle l aeration of the mastoid sinuses. There is some hypodensity in the periventricular white matter. The cervical vertebra show fairly normal alignment. Disc spaces are normal for age. Posterior element s are intact. There is mild cervical facet arthropathy. Prevertebral soft tissues are intact. IMPRESSION: Negative CT scan of the cervical spine. Pleural thickening and fibrotic changes noted at the lung api lita. Cerebral atrophy. No acute intracranial abnormality. Mild chronic small vessel ischemia. No change co mpared to the old exam.
--- NOTE | 2022-06-04 15:19 | XR ---
EXAMINATION TYPE: XR wrist complete LT DATE OF EXAM: 06/04/2022 COMPARISON: NONE HISTORY: Wrist pain TECHNIQUE: 4 views FINDINGS: Carpal bones appear intact. There is narrowing and spurring at the first carpometacarpal luz int. Radius and ulna appear intact at the radiocarpal joint. 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 No fracture seen.
--- NOTE | 2022-06-04 15:22 | XR ---
EXAMINATION TYPE: XR shoulder complete LT DATE OF EXAM: 06/04/2022 COMPARISON: NONE HISTORY: Pain TECHNIQUE: 3 views FINDINGS: There is widening of the AC joint space. I see no fracture or dislocation. There is no foca l bone destruction. IMPRESSION: Widening of the AC joint space consistent with old surgery or ligamentous tear which is n ot changed compared to chest x-ray of 11/25/2016. No acute bony abnormality.
--- NOTE | 2022-06-04 16:41 | ED ---
Fall HPI - General Chief Complaint: Fall Stated Complaint: Fall-Head injury on thinners Time Seen by Provider: 06/04/22 16:30 Source: patient Mode of arrival: ambulatory - History of Present Illness Initial Comments: 86-year-old female with past history of stroke who presents emergency Department after she sustained a fall. States that she was walking down her road near her house when she tripped on a curb and fell forward. She hit the left side of her head. Denies losing consciousness. She does take Plavix for a history of stroke. She also landed on her left shoulder, left wrist and her bilateral knees. She had several neighbors that witnessed it and therefore they came out help her up. One of the neighbors brought her into the emergency department. She states that she originally had pain in her left shoulder and wrist however it has fully resolved at this time. She denies any headaches or visual changes. No neck or back pain. No numbness, tickling or weakness in her extremities. Continues to have full normal range of motion of her arms and legs. Denies taking any medications for pain. She denies any chest pain or shortness of breath. No abdominal pain. No other alleviating, precipitating or modifying factors - Related Data Home Medications Medication Instructions Recorded Confirmed Levothyroxine Sodium [Synthroid] 112 mcg PO DAILY 07/28/20 03/28/22 Omeprazole 20 mg PO DAILY 03/28/22 03/28/22 Allergies Allergy/AdvReac Type Severity Reaction Status Date / Time aspirin Allergy Rash/Hives Verified 06/04/22 14:10 codeine Allergy Rash/Hives Verified 06/04/22 14:10 lincomycin HCl Allergy Anaphylaxis Verified 06/04/22 14:10 [From Lincocin] lorazepam [From Ativan] Allergy passed out Verified 06/04/22 14:10 midazolam HCl [From Versed] Allergy Rapid Verified 06/04/22 14:10 Heart Rate naproxen [From Naprosyn] Allergy Anaphylaxis Verified 06/04/22 14:10 Penicillins Allergy Rash/Hives Verified 06/04/22 14:10 Sulfa (Sulfonamide Allergy Rash/Hives Verified 06/04/22 14:10 Antibiotics) Review of Systems ROS Statement: Those systems with pertinent positive or pertinent negative responses have been documented in the HPI. ROS Other: All systems not noted in ROS Statement are negative. Past Medical History Past Medical History: Cancer, Eye Disorder, GERD/Reflux, Hearing Disorder / Deafness, Thyroid Disorder Additional Past Medical History / Comment(s): VERTIGO. HX ARRYTHMIA, NO TX NEEDED. ALLERGIES. CA FACE. DRY EYES. EXCESSIVE DIARRHEA for several months & increasing recently, HX C-DIFF. Sciatica, spinal stenosis History of Any Multi-Drug Resistant Organisms: C-DIFF Date of last positivie culture/infection: 2016 MDRO Source:: stool Past Surgical History: Appendectomy, Hernia Repair, Orthopedic Surgery, Tubal Ligation Additional Past Surgical History / Comment(s): CHELA Shoulder. Cataracts. INGUINAL HERNIA REPAIR. COLONOSCOPY. Past Anesthesia/Blood Transfusion Reactions: No Reported Reaction Past Psychological History: Anxiety Smoking Status: Never smoker Past Alcohol Use History: None Reported Past Drug Use History: None Reported - Past Family History Mother Family Medical History: CVA/TIA Father Family Medical History: Myocardial Infarction ([place]) General Exam Limitations: no limitations General appearance: alert, in no apparent distress Head exam: Present: normocephalic, other (mild abrasion left forehead) Eye exam: Present: normal appearance, PERRL, EOMI. Absent: scleral icterus, conjunctival injection, periorbital swelling ENT exam: Present: normal exam, mucous membranes moist Neck exam: Present: normal inspection. Absent: tenderness, meningismus, lymphadenopathy Respiratory exam: Present: normal lung sounds bilaterally. Absent: respiratory distress, wheezes, rales, rhonchi, stridor Cardiovascular Exam: Present: regular rate, normal rhythm, normal heart sounds. Absent: systolic murmur, diastolic murmur, rubs, gallop, clicks GI/Abdominal exam: Present: soft, normal bowel sounds. Absent: distended, tenderness, guarding, rebound, rigid Extremities exam: Present: normal inspection, full ROM, normal capillary refill. Absent: tenderness, pedal edema, joint swelling, calf tenderness Back exam: Present: normal inspection Neurological exam: Present: alert, oriented X3, CN II-XII intact Psychiatric exam: Present: normal affect, normal mood Skin exam: Present: warm, dry, intact, normal color. Absent: rash Course Vital Signs 06/04/22 06/04/22 14:06 16:54 Temperature 98 F 98.0 F Pulse Rate 57 L 60 Respiratory 16 18 Rate Blood Pressure 148/73 146/68 O2 Sat by Pulse 99 99 Oximetry Medical Decision Making - Medical Decision Making Upon arrival patient was placed into room 23. There are history and physical exam was performed. Patient has no pain to palpation on physical exam. I did review the patient's CT of her head and cervical spine which demonstrates no acute fracture or intracranial process. Mild chronic small vessel ischemia. 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 X-ray of the shoulder demonstrates widening of the before meals joint which was seen previously in 2017. Patient is made aware the findings. States she feels asymptomatic at this time. Patient will be discharged home and instructed to follow-up with her primary care doctor in 2-4 days. Take Tylenol for pain. Return to the emergency room for any new or worsening symptoms. Patient was agreeable and discharged home in stable condition Disposition Clinical Impression: Fall, Concussion without loss of consciousness, Left shoulder pain Disposition: HOME SELF-CARE Condition: Stable Instructions (If sedation given, give patient instructions): Head Injury (ED) Additional Instructions: Please follow-up with your primary care doctor in 2-4 days. Take Tylenol for any pain. Return for any new or worsening symptoms Is patient prescribed a controlled substance at d/c from ED?: No Referrals: Emma Solis MD [Primary Care Provider] - 1-2 days Time of Disposition: 16:41
[2022-06-04 16:55] VITALS: BP 146/68; PULSE 60; RESP 18; TEMP 98
== END 2022-06-04 16:55 | disposition home or self-care (01) ==
LOC: EC 13:45
DX: S06.0X0A Concussion without loss of consciousness, initial encounter (principal); K21.9 Gastro-esophageal reflux disease without esophagitis; E07.9 Disorder of thyroid, unspecified; F41.9 Anxiety disorder, unspecified; Z88.6 Allergy status to analgesic agent; Z88.5 Allergy status to narcotic agent; Z88.1 Allergy status to other antibiotic agents; Z88.8 Allergy status to other drugs, medicaments and biological substances; Z88.0 Allergy status to penicillin; Z88.2 Allergy status to sulfonamides; Z88.4 Allergy status to anesthetic agent; Z79.890 Hormone replacement therapy; W10.1XXA Fall (on)(from) sidewalk curb, initial encounter
CPT/HCPCS: 70450; 72125; 99284